=== PATIENT | male | born 1960 ===

== ENCOUNTER 2024-05-02 14:02 | Outpatient (CLI) | payer MEDICARE, MEDICAID, SELFPAY ==
[2024-05-02 14:29] LABS: Basophils Absolute Auto 0.1 K/mm3 (0.0-0.1); Basophils Percent Auto 0.3 % (0.2-1.2); Eosinophils Absolute Auto 0.1 K/mm3 (0-0.3); Eosinophils Percent Auto 0.5 % (0-4.4); Hematocrit 40.3 % (42.0-52.0); Hemoglobin 13.1 g/dL (14.0-18.0); Immature Granulocyte Absolute 0.05 K/mm3 (0.00-0.031); Immature Granulocyte Percent A 0.3 % (0-0.5); Lymphocytes Absolute Auto 11.61 K/mm3 (0.9-3.2); Lymphocytes Percent Auto 64.2 % (18.3-44.2); Mean Corpuscular HGB Conc 32.5 g/dl (32-36); Mean Corpuscular Hemoglobin 27.8 pg (26-34); Mean Corpuscular Volume 85.4 fl (80-100); Monocytes Absolute Auto 0.6 K/mm3 (0.1-0.6); Monocytes Percent Auto 3.2 % (2.6-8.5); Neutrophils Absolute Auto 5.7 K/mm3 (1.3-6.7); Neutrophils Percent Auto 31.5 % (45.5-73.1); Platelet Count Result 175 k/mm3 (150-375); Red Blood Count 4.72 M/mm3 (4.6-6.20); Red Cell Distribution Width 13.6 % (11.5-14.5); White Blood Count 18.1 K/mm3 (4.5-10.0)
--- OUTSIDE RECORDS SUMMARY | 2024-05-02 15:53 | XMS_ITS | Encounter Summary ---
Author Organization [facility] Facility Care Team Providers Care Paper Guillotine Operator Name Role Phone No, Physician Primary Care Provider [phone] Unknown, Notinfile Primary Care Provider Unavail able Lizz Ann MD Primary Care Provi veronica Encounter Details Date Type Department Care Team (Latest Contact Info) Description 10/05/2016 Orders Only [facility] CLINCONV ProviderMarlene MD [address] [place] [address] Social History Tobacco Use Types Packs/Day Years Used Date Smoking Tobacco: Never Assessed Sex and Gender Information Value Date Recorded Sex Assigned at Not on file 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 us Historical Provider Final Res ult documented in this encounter Visit Diagnoses Not on filedocumented in this encounter Care Teams Paper Guillotine Operator Relationship Specialty Start Date End Date No, Physician PCP - General 09/29/21 10/07/22 Unknown, Notinfile PCP - General 10/08/22 02/26/23 Lizz Ann MD PCP - General Family Medicine 02/27/23 documented as of this encounter
--- OUTSIDE RECORDS SUMMARY | 2024-05-02 15:53 | XMS_ITS | Referral Summary ---
Author Organization [facility] Address [address] [place] [address] Care Team Providers Care Fur Ironer Name Role Phone Lizz Ann MD Primary Care Provi veronica Allergies Active Allergy Reactions Criticality Noted Date Comments Penicillins Rash Medium 02/27/2023 Medications tamsulosin (FLOMAX) 0.4 mg extended release capsule 1 capsule (0.4 mg total) daily Active cloZAPine (CLOZARIL) 50 mg tablet Take 1 tablet (50 mg total) by mouth daily Active LORazepam (ATIVAN) 0.5 mg tablet Take 1 tablet (0.5 mg total) by mouth every 6 (six) hours as needed for anxiety Active hydrOXYzine (ATARAX) 25 mg tablet Take 1 tablet (25 mg total) by mouth 3 (three) times a day as needed for itching Active busPIRone (BUSPAR) 10 mg tabletIndicatio ns:Generalized Anxiety Disorder Take 1 tablet (10 mg total) by mouth 3 (three) times a day Active omeprazole 20 mg tablet,delayed release (DR/EC) Take by mouth Active meloxicam (MOBIC) 15 mg tabletIndicatio ns:Osteoarthrit is Take 1 tablet (15 mg total) by mouth daily 30 tablet 02/27/2023 Active Active Problems No known active problems Social History Tobacco Use Types Packs/Day Years Used Date Smoking Tobacco: Never Assessed Personal Safety Answer Date Recorded Have you ever been in or are you currently in a harmful physical or emotional relationship or is someone making you feel afraid or unsafe? 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 OPERATOR Gender Identity Not on file Sexual Orientation Not on file Last Filed Vital Signs Vital Sign Reading Time Taken Comments Blood Pressure 154/99 02/27/2023 8:37 AM CRUSHER LOADER OPERATOR Pulse 109 02/27/2023 8:45 AM CRUSHER LOADER OPERATOR Temperature 37.1 C (98.8 F) 02/27/2023 8:38 AM CRUSHER LOADER OPERATOR Respiratory Rate 18 02/27/2023 8:37 AM CRUSHER LOADER OPERATOR Oxygen Saturation 100% 02/27/2023 8:45 AM CRUSHER LOADER OPERATOR Inhaled Oxygen Concentration - - Weight 68 kg (150 lb) 02/27/2023 8:37 AM CRUSHER LOADER OPERATOR Height 170.2 cm (5' 7 ) 02/27/2023 8:37 AM CRUSHER LOADER OPERATOR Body Mass Index 23.49 02/27/2023 8:37 AM CRUSHER LOADER OPERATOR Plan of Treatment Not on file Insurance MEDICARE [facility] MEDICARE Care Teams Fur Ironer Relationship Specialty Start Date End Date Lizz Ann MD PCP - General Family Medicine 02/27/23
--- OUTSIDE RECORDS SUMMARY | 2024-05-02 15:53 | XMS_ITS | Encounter Summary ---
Author Organization [facility] Facility Care Team Providers Care Dry Pan Charger Name Role Phone No, Physician Primary Care Provider [phone] Unknown, Notinfile Primary Care Provider Unavail able Lizz Ann MD Primary Care Provi veronica Encounter Details Date Type Department Care Team (Latest Contact Info) Description 12/28/2016 Orders Only [facility] CLINCONV ProviderMarlene MD [address] [place] [address] Social History Tobacco Use Types Packs/Day Years Used Date Smoking Tobacco: Never Assessed Sex and Gender Information Value Date Recorded Sex Assigned at Not on file Legal Sex Male 11:22 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 us Historical Provider Final Res ult documented in this encounter Visit Diagnoses Not on filedocumented in this encounter Care Teams Dry Pan Charger Relationship Specialty Start Date End Date No, Physician PCP - General 09/29/21 10/07/22 Unknown, Notinfile PCP - General 10/08/22 02/26/23 Lizz Ann MD PCP - General Family Medicine 02/27/23 documented as of this encounter
--- OUTSIDE RECORDS SUMMARY | 2024-05-02 15:53 | XMS_ITS | Encounter Summary ---
Author Organization [facility] Facility Care Team Providers Care Dog Day Care Attendant Name Role Phone No, Physician Primary Care Provider [phone] Unknown, Notinfile Primary Care Provider Unavail able Lizz Ann MD Primary Care Provi veronica Encounter Details Date Type Department Care Team (Latest Contact Info) Description 11/30/2016 Orders Only [facility] CLINCONV ProviderMarlene MD [address] [place] [address] Social History Tobacco Use Types Packs/Day Years Used Date Smoking Tobacco: Never Assessed Sex and Gender Information Value Date Recorded Sex Assigned at Not on file 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 us Historical Provider Final Res ult documented in this encounter Visit Diagnoses Not on filedocumented in this encounter Care Teams Dog Day Care Attendant Relationship Specialty Start Date End Date No, Physician PCP - General 09/29/21 10/07/22 Unknown, Notinfile PCP - General 10/08/22 02/26/23 Lizz Ann MD PCP - General Family Medicine 02/27/23 documented as of this encounter
--- OUTSIDE RECORDS SUMMARY | 2024-05-02 15:53 | XMS_ITS | Clinical Summary ---
Author Organization [facility] Address [address] [place] [address] Care Team Providers Care Flower Grader Name Role Phone Lizz Ann MD Primary [...] on file Legal Sex Male 11:22 AM TREE SHEAR OPERATOR Gender Identity Not on file Sexual Orientation Not on file Obstetrics History Last Filed Vital Signs Vital Sign Reading Time Taken Comments Blood Pressure 154/99 02/27/2023 8:37 AM TREE SHEAR OPERATOR Pulse 109 02/27/2023 8:45 AM TREE SHEAR OPERATOR Temperature 37.1 C (98.8 F) 02/27/2023 8:38 AM TREE SHEAR OPERATOR Respiratory Rate 18 02/27/2023 8:37 AM TREE SHEAR OPERATOR Oxygen Saturation 100% 02/27/2023 8:45 AM TREE SHEAR OPERATOR Inhaled Oxygen Concentration - - Weight 68 kg (150 lb) 02/27/2023 8:37 AM TREE SHEAR OPERATOR Height 170.2 cm (5' 7 ) 02/27/2023 8:37 AM TREE SHEAR OPERATOR Body Mass Index 23.49 02/27/2023 8:37 AM TREE SHEAR OPERATOR Plan of Treatment Health Maintenance Due Date Last Done Comments Colon Cancer Screening-Colonoscopy 1961 Depression Screening 1960 Hepatitis C Screening 1960 Prostate Cancer Screening-PSA 1961 Hepatitis B Screening 07/25/1979 Regular Well Visit/Exam 18-64 07/25/1979 Zoster Vaccine (1 of 2) 07/25/2011 Covid-19 Vaccine (2023-2 5 season) 2023 01/15/2021, 03/15/2020, 02/23/2020 Influenza Vaccine (#1) 2023 , 11/19/2021 DTaP/Tdap/Td Vaccine (2 - Td or Tdap) 11/16/2032 11/16/2022 Pneumococcal vaccine <65 Aged Out No longer eligible based on patient's age to complete this topic Insurance MEDICARE [employer] MEDICARE [facility] Address: [address] [address] [place] [address] Care Teams Flower Grader Relationship Specialty Start Date End Date Lizz Ann MD PCP - General Family Medicine 02/27/23
--- OUTSIDE RECORDS SUMMARY | 2024-05-02 15:54 | XMS_ITS | Encounter Summary ---
Author Organization [facility] Facility Care Team Providers Care Fiscal Accounting Clerk Name Role Phone No, Physician Primary Care Provider [phone] Unknown, Notinfile Primary Care Provider Unavail able Lizz Ann MD Primary Care Provi veronica Encounter Details Date Type Department Care Team (Latest Contact Info) Description 05/11/2017 Orders Only [facility] CLINCONV ProviderMarlene MD [address] [place] [address] Social History Tobacco Use Types Packs/Day Years Used Date Smoking Tobacco: Never Assessed Sex and Gender Information Value Date Recorded Sex Assigned at Not on file 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 us Historical Provider Final Res ult documented in this encounter Visit Diagnoses Not on filedocumented in this encounter Care Teams Fiscal Accounting Clerk Relationship Specialty Start Date End Date No, Physician PCP - General 09/29/21 10/07/22 Unknown, Notinfile PCP - General 10/08/22 02/26/23 Lizz Ann MD PCP - General Family Medicine 02/27/23 documented as of this encounter
--- OUTSIDE RECORDS SUMMARY | 2024-05-02 15:54 | XMS_ITS | Encounter Summary ---
Author Organization [facility] Address [address] [place] [address] Care Team Providers Care Jeeper Operator Name Role Phone Unavailable Primary Care Provider Unavailabl e Reason for Visit * Reason Comments Establish Care Encounter Details Date Type Department Care Team (Late st Contact Info) Description 05/02/2024 1:30 PM CDT Office Visit [facility] Oncology and Hematology - [place] [address] [facility] [address] [place] [address] Jose Blankenship MD [address] [facility] [address] [place] [address] Lymphocytosis (Primary Dx) Social History Tobacco Use Types Packs/Day Years Used Date Smoking Tobacco: Never Smokeless Tobacco: Never Alcohol Use Standard Drinks/Week Comments Never 0 (1 standard drink = 0.6 oz pur e alcohol) Sex and Gender Information Value Date Recorded Sex Assigned at Not on file Legal Sex Male 5:10 PM BEADWORKER Gender Identity Not on file Sexual Orientation Not on file documented as of this encounter Last Filed Vital Signs Vital Sign Reading Time Taken Comments Blood Pressure 130/87 05/02/2024 1:31 PM CDT Pulse 104 05/02/2024 1:28 PM CDT Temperature 35.9 C (96.6 F) 05/02/2024 1:28 PM CDT Respiratory Rate 15 05/02/2024 1:28 PM CDT Oxygen Saturation 96% 05/02/2024 1:28 PM CDT Inhaled Oxygen Concentration - - Weight 59 kg (130 lb) 05/02/2024 1:28 PM CDT Height 172.7 cm (5' 8 ) 05/02/2024 1:28 PM CDT Body Mass Index 19.77 05/02/2024 1:28 PM CDT documented in this encounter Progress Notes * Jose Blankenship MD - 05/02/2024 2:09 PM CDT Hematology-oncology consult Note Requesting Physician Primary Care Physician No primary care provider on file. Problem list There is no problem list on file for this patient. Previous TREATMENT ? Measurable Disease ? Reason for Visit Neptali Byrd is a 63 y.o. male who was referred for consultation for lymphocytosis. History of present illness This is a 63-year-old male with history of schizophrenia, GERD, BPH referred to me for leukocytosis and lymphocytosis. He is a resident of [facility]. He denies any night sweats fever chills. He has lost 5 to 10 pound weight unintentionally. Denies any new lumps bumps and lymphadenopathy. He has no previous history of malignancy. Labs done on January 2024 showed WBCcount of 18.8 with lymphocyte of 64%. He denies any other new complaints. Past Medical History No past medical history on file. Schizophrenia BPH GERD Hypothyroidism Surgical History Past Surgical History: Procedure Laterality Date HX HIP FRACTURE TX Medications Current Outpatient Medications Medication Sig Dispense Refill LORazepam (ATIVAN) 0.5 mg tablet Take 0.5 mg by mouth daily. meloxicam (MOBIC) 15 mg tablet Take 15 mg by mouth daily. tamsulosin (FLOMAX) 0.4 mg capsule Take 0.4 mg by mouth daily. melatonin 5 mg Tablet Take 5 mg by mouth nightly as needed for Insomnia. MULTIVITAMIN ORAL Take by mouth daily. omeprazole (PriLOSEC) 20 mg Tablet, Delayed Release (E.C.) 20 mg by See Admin Instructions route daily before breakfast. No current facility-administered medications for this visit. Allergies Allergies Allergen Reactions Penicillins Rash and Unknown Immunizations: Immunization History Administered Date(s) Administered ([employer](12 YR UP) COVID-19 VACCINE - EMERGENCY USE AUTHORIZATION, MRNA, [id number](PF) 30 MCG/0.3 MLIM SUSP 02/23/2020, 03/15/2020, 01/15/2021 Family History Family History Problem Relation Name Age of Onset Heart Disease Father Diabetes Mother Breast Cancer Sister Bone Cancer Sister Atrial fibrillation Sister No Known Problems Sister Social History Social History Tobacco Use Smoking status: Never Smokeless tobacco: Never Substance Use Topics Alcohol use: Never Review of Systems Constitutional: Patient did not mention fever; no night sweats; no anorexia; no weight loss; no fatique NEENT: Patient did not mention headache; no change in vision; no change in hearing; no sore throat;no dysphagia Respiratory: Patient did not mention shortness of breath; no pleuritic chest pain; no cough; no hemoptysis Cardiac: Patient did not mention cardiac-like chest pain; no palpitations; no orthopnea; no PND; noDOE GI: Patient did not mention abdominal pain; no nausea; no vomiting; no diarrhea; no hematochezia; no melena : Patient did not mention dysuria; no frequency; no hesitancy; no hematuria LOCATION ANALYST: Musculosketetal: Patient did not mention bone pain; no arthralgia; no joint swelling; no myalgia; Skin: Patient did not mention pruritis; no rash; no petechiae; no ecchymoses Endocrine: Patient did not mention polydipsia; no polyuria; no unusual weight gain Neuro: Patient did not mention headache; no change in vision; no sensory changes; no muscle weakness; no confusion; no seizures Psych: Patient did not mention anxiety; no depression; Physical Exam Vitals: As per nursing note Constitutional: Well developed, well nourished, no acute distress, non-toxic appearance Teeth and gum. No signs of infection or swelling. Eyes: PERRL, conjunctiva normal HEENT: Atraumatic, external ears normal, nose normal, oropharynx moist, no pharyngeal exudates. no sinus tenderness Neck- normal range of motion, no tenderness, supple Respiratory: No respiratory distress, normal breath sounds, no rales, no wheezing Cardiovascular: Normal rate, normal rhythm, no murmurs, no gallops, no rubs GI: Soft, nondistended, normal bowel sounds, nontender, no splenomegaly, no hepatomegaly, no mass, no rebound, no guarding : No costovertebral angle tenderness Musculoskeletal: No edema, no tenderness, no deformities. Back- no tenderness Integument: Well hydrated, no rash, Digits and nails inspection normal Lymphatic: No lymphadenopathy noted Neurologic: Alert & oriented x 3, CN 2-12 normal, normal motor function, normal sensory function, no focal deficits noted Psychiatric: Speech and behavior appropriate ? labs No results found for this or any previous visit (from the past 24 hours). Labs from January 2024 showed WBC 18.8 hemoglobin 12.5 platelet 191,000 neutrophils 31% [id number] Pathology ? Imaging & Other Studies Performance Status? Assessment / Plan: ? Leukocytosis with lymphocytosis. Patient is a 63-year-old male with history of schizophrenia, hypothyroidism, GERD and BPH referred to me for leukocytosis and lymphocytosis. Patient is a long term resident. He denies any night sweats fever and chills. Denies any new lumps bumps and lymp hadenopathy. He has lost 5 to 10 pound weight unintentionally. Labs reviewed and discussed with thepatient that showed elevated WBC count with lymphocytosis. On my examination there is no evidence of lymphadenopathy and hepatosplenomegaly. These findings are quite concerning for chronic lymphocytic leukemia. I will order the testing including CBC with differential, CMP, LDH and flow cytometric analysis for leukemia panel. He will be back to see me in 2 to 3 weeks. I have answered all the questions to patient satisfaction. GERD. He is on Prilosec. BPH. He is on tamsulosin. Thank you very much for allowing me to participate in Neptali Byrd's evaluation and management. Please feel free to contact if I can be of any further assistance in your patient???s care requiring hematology or oncology evaluation. Sincerely, ? ? Jose Blankenship M.D. cell TOBACCO COUNSELING He is not a tobacco/nicotine user. Jose Blankenship MD ,05/02/2024 2:10 PM ? Total time spent 60 minutes, two third of the total time spent counseling patient [id number]. CC:? documented in this encounter Plan of Treatment Scheduled Orders Name Type Priority Associated Diagnoses Orde r Schedule CBC WITH DIFFERENTIAL Lab Stat Lymphocytosis Expected: 05/02/2024, Expires: 05/02/2025 COMPREHENSIVE METABOLIC PANEL Lab Stat Lymphocytosis Expected: 05/02/2024, Expires: 05/02/2025 C-REACTIVE PROTEIN Lab Routine Lymphocytosis Expected: 05/02/2024, Expires: 05/02/2025 LACTATE DEHYDROGENASE Lab Routine Lymphocytosis Expected: 05/02/2024, Expires: 05/02/2025 FLOW CYTOMETRY PANEL Lab Routine Lymphocytosis Expected: 05/02/2024, Expires: 05/02/2025 documented as of this encounter Visit Diagnoses Diagnosis Lymphocytosis- Primary Lymphocytosis (symptomatic) documented in this encounter
--- OUTSIDE RECORDS SUMMARY | 2024-05-02 15:54 | XMS_ITS | Encounter Summary ---
Author Organization [facility] Facility Care Team Providers Care Security Systems Specialist Name Role Phone No, Physician Primary Care Provider [phone] Unknown, Notinfile Primary Care Provider Unavail able Lizz Ann MD Primary Care Provi veronica Encounter Details Date Type Department Care Team (Latest Contact Info) Description 05/04/2016 Orders Only [facility] CLINCONV ProviderMarlene MD [address] [place] [address] Social History Tobacco Use Types Packs/Day Years Used Date Smoking Tobacco: Never Assessed Sex and Gender Information Value Date Recorded Sex Assigned at Not on file Legal Sex Male 11:22 AM PUBLIC RELATIONS PROFESSIONAL Gender Identity Not on file Sexual Orientation Not on file documented as of this encounter Plan of Treatment Not on file documented as of this encounter Procedures Procedure Name Priority Date/Time Associated Diagnosis Comments SCAN - LABS 05/05/2016 12:00 AM CDT documented in this encounter Results * SCAN - LABS (05/05/2016 12:00 AM CDT) Narrative 05/05/2016 12:00 AM CDT Ordered by an unspecified provider. us Historical Provider Final Res ult documented in this encounter Visit Diagnoses Not on filedocumented in this encounter Care Teams Security Systems Specialist Relationship Specialty Start Date End Date No, Physician PCP - General 09/29/21 10/07/22 Unknown, Notinfile PCP - General 10/08/22 02/26/23 Lizz Ann MD PCP - General Family Medicine 02/27/23 documented as of this encounter
--- OUTSIDE RECORDS SUMMARY | 2024-05-02 15:54 | XMS_ITS | Encounter Summary ---
Author Organization [facility] Facility Care Team Providers Care Resident Services Supervisor Name Role Phone No, Physician Primary Care Provider [phone] Unknown, Notinfile Primary Care Provider Unavail able Lizz Ann MD Primary Care Provi veronica Encounter Details Date Type Department Care Team (Latest Contact Info) Description 06/07/2017 Orders Only [facility] CLINCONV ProviderMarlene MD [address] [place] [address] Social History Tobacco Use Types Packs/Day Years Used Date Smoking Tobacco: Never Assessed Sex and Gender Information Value Date Recorded Sex Assigned at Not on file 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 us Historical Provider Final Res ult documented in this encounter Visit Diagnoses Not on filedocumented in this encounter Care Teams Resident Services Supervisor Relationship Specialty Start Date End Date No, Physician PCP - General 09/29/21 10/07/22 Unknown, Notinfile PCP - General 10/08/22 02/26/23 Lizz Ann MD PCP - General Family Medicine 02/27/23 documented as of this encounter
--- OUTSIDE RECORDS SUMMARY | 2024-05-02 15:54 | XMS_ITS | Encounter Summary ---
Author Organization [facility] Facility Care Team Providers Care Banquet Kitchen Supervisor Name Role Phone No, Physician Primary Care Provider [phone] Unknown, Notinfile Primary Care Provider Unavail able Lizz Ann MD Primary Care Provi veronica Encounter Details Date Type Department Care Team (Latest Contact Info) Description 06/16/2017 Orders Only [facility] CLINCONV ProviderMarlene MD [address] [place] [address] Social History Tobacco Use Types Packs/Day Years Used Date Smoking Tobacco: Never Assessed Sex and Gender Information Value Date Recorded Sex Assigned at Not on file 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 us Historical Provider Final Res ult documented in this encounter Visit Diagnoses Not on filedocumented in this encounter Care Teams Banquet Kitchen Supervisor Relationship Specialty Start Date End Date No, Physician PCP - General 09/29/21 10/07/22 Unknown, Notinfile PCP - General 10/08/22 02/26/23 Lizz Ann MD PCP - General Family Medicine 02/27/23 documented as of this encounter
--- OUTSIDE RECORDS SUMMARY | 2024-05-02 15:54 | XMS_ITS | Encounter Summary ---
Author Organization [facility] Facility Care Team Providers Care Laborer Concrete Paving Name Role Phone No, Physician Primary Care Provider [phone] Unknown, Notinfile Primary Care Provider Unavail able Lizz Ann MD Primary Care Provi veronica Encounter Details Date Type Department Care Team (Latest Contact Info) Description 04/16/2016 Orders Only [facility] CLINCONV ProviderMarlene MD [address] [place] [address] Social History Tobacco Use Types Packs/Day Years Used Date Smoking Tobacco: Never Assessed Sex and Gender Information Value Date Recorded Sex Assigned at Not on file 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 us Historical Provider Final Res ult documented in this encounter Visit Diagnoses Not on filedocumented in this encounter Care Teams Laborer Concrete Paving Relationship Specialty Start Date End Date No, Physician PCP - General 09/29/21 10/07/22 Unknown, Notinfile PCP - General 10/08/22 02/26/23 Lizz Ann MD PCP - General Family Medicine 02/27/23 documented as of this encounter
--- OUTSIDE RECORDS SUMMARY | 2024-05-02 15:54 | XMS_ITS | Encounter Summary ---
Author Organization [facility] Facility Care Team Providers Care Payroll Specialist Name Role Phone No, Physician Primary Care Provider [phone] Unknown, Notinfile Primary Care Provider Unavail able Lizz Ann MD Primary Care Provi evronica Encounter Details Date Type Department Care Team (Latest Contact Info) Description 08/31/2016 Orders Only [facility] CLINCONV ProviderMarlene MD [address] [place] [address] Social History Tobacco Use Types Packs/Day Years Used Date Smoking Tobacco: Never Assessed Sex and Gender Information Value Date Recorded Sex Assigned at Not on file 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 us Historical Provider Final Res ult documented in this encounter Visit Diagnoses Not on filedocumented in this encounter Care Teams Payroll Specialist Relationship Specialty Start Date End Date No, Physician PCP - General 09/29/21 10/07/22 Unknown, Notinfile PCP - General 10/08/22 02/26/23 Lizz Ann MD PCP - General Family Medicine 02/27/23 documented as of this encounter
--- OUTSIDE RECORDS SUMMARY | 2024-05-02 15:54 | XMS_ITS | Encounter Summary ---
Author Organization [facility] Facility Care Team Providers Care Lithostripper Name Role Phone No, Physician Primary Care Provider [phone] Unknown, Notinfile Primary Care Provider Unavail able Lizz Ann MD Primary Care Provi veronica Encounter Details Date Type Department Care Team (Latest Contact Info) Description 11/02/2016 Orders Only [facility] CLINCONV ProviderMarlene MD [address] [place] [address] Social History Tobacco Use Types Packs/Day Years Used Date Smoking Tobacco: Never Assessed Sex and Gender Information Value Date Recorded Sex Assigned at Not on file 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 us Historical Provider Final Res ult documented in this encounter Visit Diagnoses Not on filedocumented in this encounter Care Teams Lithostripper Relationship Specialty Start Date End Date No, Physician PCP - General 09/29/21 10/07/22 Unknown, Notinfile PCP - General 10/08/22 02/26/23 Lizz Ann MD PCP - General Family Medicine 02/27/23 documented as of this encounter
--- OUTSIDE RECORDS SUMMARY | 2024-05-02 15:54 | XMS_ITS | Encounter Summary ---
Author Organization [facility] Facility Care Team Providers Care Specimen Accessioner Name Role Phone No, Physician Primary Care Provider [phone] Unknown, Notinfile Primary Care Provider Unavail able Lizz Ann MD Primary Care Provi veronica Encounter Details Date Type Department Care Team (Latest Contact Info) Description 10/03/2015 Orders Only [facility] CLINCONV ProviderMarlene MD [address] [place] [address] Social History Tobacco Use Types Packs/Day Years Used Date Smoking Tobacco: Never Assessed Sex and Gender Information Value Date Recorded Sex Assigned at Not on file 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 us Historical Provider Final Res ult documented in this encounter Visit Diagnoses Not on filedocumented in this encounter Care Teams Specimen Accessioner Relationship Specialty Start Date End Date No, Physician PCP - General 09/29/21 10/07/22 Unknown, Notinfile PCP - General 10/08/22 02/26/23 Lizz Ann MD PCP - General Family Medicine 02/27/23 documented as of this encounter
--- OUTSIDE RECORDS SUMMARY | 2024-05-02 15:54 | XMS_ITS | Encounter Summary ---
Author Organization [facility] Facility Care Team Providers Care Fountain Waitress/Waiter Name Role Phone No, Physician Primary Care Provider [phone] Unknown, Notinfile Primary Care Provider Unavail able Lizz Ann MD Primary Care Provi veronica Encounter Details Date Type Department Care Team (Latest Contact Info) Description 05/06/2017 Orders Only [facility] CLINCONV ProviderMarlene MD [address] [place] [address] Social History Tobacco Use Types Packs/Day Years Used Date Smoking Tobacco: Never Assessed Sex and Gender Information Value Date Recorded Sex Assigned at Not on file 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 us Historical Provider Final Res ult documented in this encounter Visit Diagnoses Not on filedocumented in this encounter Care Teams Fountain Waitress/Waiter Relationship Specialty Start Date End Date No, Physician PCP - General 09/29/21 10/07/22 Unknown, Notinfile PCP - General 10/08/22 02/26/23 Lizz Ann MD PCP - General Family Medicine 02/27/23 documented as of this encounter
--- OUTSIDE RECORDS SUMMARY | 2024-05-02 15:54 | XMS_ITS | Encounter Summary ---
Author Organization [facility] Facility Care Team Providers Care Meat Lugger Name Role Phone No, Physician Primary Care Provider [phone] Unknown, Notinfile Primary Care Provider Unavail able Lizz Ann MD Primary Care Provi veronica Encounter Details Date Type Department Care Team (Latest Contact Info) Description 03/24/2017 Orders Only [facility] CLINCONV ProviderMarlene MD [address] [place] [address] Social History Tobacco Use Types Packs/Day Years Used Date Smoking Tobacco: Never Assessed Sex and Gender Information Value Date Recorded Sex Assigned at Not on file Legal Sex Male 11:22 AM TEACHING FELLOW Gender Identity Not on file Sexual Orientation Not on file documented as of this encounter Plan of Treatment Not on file documented as of this encounter Procedures Procedure Name Priority Date/Time Associated Diagnosis Comments SCAN - LABS 03/24/2017 12:00 AM TEACHING FELLOW documented in this encounter Results * SCAN - LABS (03/24/2017 12:00 AM TEACHING FELLOW) Narrative 03/24/2017 12:00 AM TEACHING FELLOW Ordered by an unspecified provider. us Historical Provider Final Res ult documented in this encounter Visit Diagnoses Not on filedocumented in this encounter Care Teams Meat Lugger Relationship Specialty Start Date End Date No, Physician PCP - General 09/29/21 10/07/22 Unknown, Notinfile PCP - General 10/08/22 02/26/23 Lizz Ann MD PCP - General Family Medicine 02/27/23 documented as of this encounter
--- OUTSIDE RECORDS SUMMARY | 2024-05-02 15:54 | XMS_ITS | Encounter Summary ---
Author Organization [facility] Facility Care Team Providers Care Manager Insurance Name Role Phone No, Physician Primary Care Provider [phone] Unknown, Notinfile Primary Care Provider Unavail able Lizz Ann MD Primary Care Provi veronica Encounter Details Date Type Department Care Team (Latest Contact Info) Description 11/16/2016 Orders Only [facility] CLINCONV ProviderMarlene MD [address] [place] [address] Social History Tobacco Use Types Packs/Day Years Used Date Smoking Tobacco: Never Assessed Sex and Gender Information Value Date Recorded Sex Assigned at Not on file 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 us Historical Provider Final Res ult documented in this encounter Visit Diagnoses Not on filedocumented in this encounter Care Teams Manager Insurance Relationship Specialty Start Date End Date No, Physician PCP - General 09/29/21 10/07/22 Unknown, Notinfile PCP - General 10/08/22 02/26/23 Lizz Ann MD PCP - General Family Medicine 02/27/23 documented as of this encounter
--- OUTSIDE RECORDS SUMMARY | 2024-05-02 15:54 | XMS_ITS | Encounter Summary ---
Author Organization [facility] Facility Care Team Providers Care Wirer Helper Name Role Phone No, Physician Primary Care Provider [phone] Unknown, Notinfile Primary Care Provider Unavail able Lizz Ann MD Primary Care Provi veronica Encounter Details Date Type Department Care Team (Latest Contact Info) Description 09/28/2016 Orders Only [facility] CLINCONV ProviderMarlene MD [address] [place] [address] Social History Tobacco Use Types Packs/Day Years Used Date Smoking Tobacco: Never Assessed Sex and Gender Information Value Date Recorded Sex Assigned at Not on file 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 us Historical Provider Final Res ult documented in this encounter Visit Diagnoses Not on filedocumented in this encounter Care Teams Wirer Helper Relationship Specialty Start Date End Date No, Physician PCP - General 09/29/21 10/07/22 Unknown, Notinfile PCP - General 10/08/22 02/26/23 Lizz Ann MD PCP - General Family Medicine 02/27/23 documented as of this encounter
--- OUTSIDE RECORDS SUMMARY | 2024-05-02 15:54 | XMS_ITS | Encounter Summary ---
Author Organization [facility] Facility Care Team Providers Care Community Health Nursing Director Name Role Phone No, Physician Primary Care Provider [phone] Unknown, Notinfile Primary Care Provider Unavail able Lizz Ann MD Primary Care Provi veronica Encounter Details Date Type Department Care Team (Latest Contact Info) Description 11/01/2015 Orders Only [facility] CLINCONV ProviderMarlene MD [address] [place] [address] Social History Tobacco Use Types Packs/Day Years Used Date Smoking Tobacco: Never Assessed Sex and Gender Information Value Date Recorded Sex Assigned at Not on file Legal Sex Male 11:22 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 us Historical Provider Final Res ult documented in this encounter Visit Diagnoses Not on filedocumented in this encounter Care Teams Community Health Nursing Director Relationship Specialty Start Date End Date No, Physician PCP - General 09/29/21 10/07/22 Unknown, Notinfile PCP - General 10/08/22 02/26/23 Lizz Ann MD PCP - General Family Medicine 02/27/23 documented as of this encounter
--- OUTSIDE RECORDS SUMMARY | 2024-05-02 15:54 | XMS_ITS | Encounter Summary ---
Author Organization 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 us Historical Provider Final Res ult documented in this encounter Visit Diagnoses Not on filedocumented in this encounter Care Teams Chain Link Fence Installer Relationship Specialty Start Date End Date No, Physician PCP - General 09/29/21 10/07/22 Unknown, Notinfile PCP - General 10/08/22 02/26/23 Lizz Ann MD PCP - General Family Medicine 02/27/23 documented as of this encounter
--- OUTSIDE RECORDS SUMMARY | 2024-05-02 15:54 | XMS_ITS | Encounter Summary ---
Author Organization [facility] Facility Care Team Providers Care Standard Machine Stitcher Name Role Phone No, Physician Primary Care Provider [phone] Unknown, Notinfile Primary Care Provider Unavail able Lizz Ann MD Primary Care Provi veronica Encounter Details Date Type Department Care Team (Latest Contact Info) Description 07/15/2016 Orders Only [facility] CLINCONV ProviderMarlene MD [address] [place] [address] Social History Tobacco Use Types Packs/Day Years Used Date Smoking Tobacco: Never Assessed Sex and Gender Information Value Date Recorded Sex Assigned at Not on file 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 us Historical Provider Final Res ult documented in this encounter Visit Diagnoses Not on filedocumented in this encounter Care Teams Standard Machine Stitcher Relationship Specialty Start Date End Date No, Physician PCP - General 09/29/21 10/07/22 Unknown, Notinfile PCP - General 10/08/22 02/26/23 Lizz Ann MD PCP - General Family Medicine 02/27/23 documented as of this encounter
--- OUTSIDE RECORDS SUMMARY | 2024-05-02 15:54 | XMS_ITS | Encounter Summary ---
Author Organization [facility] Facility Care Team Providers Care Inspector Eyeglass Name Role Phone No, Physician Primary Care Provider [phone] Unknown, Notinfile Primary Care Provider Unavail able Lizz Ann MD Primary Care Provi veronica Encounter Details Date Type Department Care Team (Latest Contact Info) Description 01/12/2017 Orders Only [facility] CLINCONV ProviderMarlene MD [address] [place] [address] Social History Tobacco Use Types Packs/Day Years Used Date Smoking Tobacco: Never Assessed Sex and Gender Information Value Date Recorded Sex Assigned at Not on file 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 us Historical Provider Final Res ult documented in this encounter Visit Diagnoses Not on filedocumented in this encounter Care Teams Inspector Eyeglass Relationship Specialty Start Date End Date No, Physician PCP - General 09/29/21 10/07/22 Unknown, Notinfile PCP - General 10/08/22 02/26/23 Lizz Ann MD PCP - General Family Medicine 02/27/23 documented as of this encounter
--- OUTSIDE RECORDS SUMMARY | 2024-05-02 15:54 | XMS_ITS | Encounter Summary ---
Author Organization [facility] Facility Care Team Providers Care Assistant Food Service Director Name Role Phone No, Physician Primary Care Provider [phone] Unknown, Notinfile Primary Care Provider Unavail able Lizz Ann MD Primary Care Provi veronica Encounter Details Date Type Department Care Team (Latest Contact Info) Description 07/02/2016 Orders Only [facility] CLINCONV ProviderMarlene MD [address] [place] [address] Social History Tobacco Use Types Packs/Day Years Used Date Smoking Tobacco: Never Assessed Sex and Gender Information Value Date Recorded Sex Assigned at Not on file 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 us Historical Provider Final Res ult documented in this encounter Visit Diagnoses Not on filedocumented in this encounter Care Teams Assistant Food Service Director Relationship Specialty Start Date End Date No, Physician PCP - General 09/29/21 10/07/22 Unknown, Notinfile PCP - General 10/08/22 02/26/23 Lizz Ann MD PCP - General Family Medicine 02/27/23 documented as of this encounter
--- OUTSIDE RECORDS SUMMARY | 2024-05-02 15:54 | XMS_ITS | Encounter Summary ---
Author Organization [facility] Facility Care Team Providers Care High Density Finishing Operator Name Role Phone No, Physician Primary Care Provider [phone] Unknown, Notinfile Primary Care Provider Unavail able Lizz Ann MD Primary Care Provi veronica Encounter Details Date Type Department Care Team (Latest Contact Info) Description 08/04/2016 Orders Only [facility] CLINCONV ProviderMarlene MD [address] [place] [address] Social History Tobacco Use Types Packs/Day Years Used Date Smoking Tobacco: Never Assessed Sex and Gender Information Value Date Recorded Sex Assigned at Not on file 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 us Historical Provider Final Res ult documented in this encounter Visit Diagnoses Not on filedocumented in this encounter Care Teams High Density Finishing Operator Relationship Specialty Start Date End Date No, Physician PCP - General 09/29/21 10/07/22 Unknown, Notinfile PCP - General 10/08/22 02/26/23 Lizz Ann MD PCP - General Family Medicine 02/27/23 documented as of this encounter
--- OUTSIDE RECORDS SUMMARY | 2024-05-02 15:54 | XMS_ITS | Encounter Summary ---
Author Organization [facility] Facility Care Team Providers Care Supervisor Twisting Department Name Role Phone No, Physician Primary Care Provider [phone] Unknown, Notinfile Primary Care Provider Unavail able Lizz Ann MD Primary Care Provi veronica Encounter Details Date Type Department Care Team (Latest Contact Info) Description 11/23/2016 Orders Only [facility] CLINCONV ProviderMarlene MD [address] [place] [address] Social History Tobacco Use Types Packs/Day Years Used Date Smoking Tobacco: Never Assessed Sex and Gender Information Value Date Recorded Sex Assigned at Not on file 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 us Historical Provider Final Res ult documented in this encounter Visit Diagnoses Not on filedocumented in this encounter Care Teams Supervisor Twisting Department Relationship Specialty Start Date End Date No, Physician PCP - General 09/29/21 10/07/22 Unknown, Notinfile PCP - General 10/08/22 02/26/23 Lizz Ann MD PCP - General Family Medicine 02/27/23 documented as of this encounter
--- OUTSIDE RECORDS SUMMARY | 2024-05-02 15:54 | XMS_ITS | Encounter Summary ---
Author Organization [facility] Facility Care Team Providers Care Program Proposals Coordinator Name Role Phone No, Physician Primary Care Provider [phone] Unknown, Notinfile Primary Care Provider Unavail able Lizz Ann MD Primary Care Provi veronica Encounter Details Date Type Department Care Team (Latest Contact Info) Description 03/29/2017 Orders Only [facility] CLINCONV ProviderMarlene MD [address] [place] [address] Social History Tobacco Use Types Packs/Day Years Used Date Smoking Tobacco: Never Assessed Sex and Gender Information Value Date Recorded Sex Assigned at Not on file Legal Sex 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 us Historical Provider Final Res ult documented in this encounter Visit Diagnoses Not on filedocumented in this encounter Care Teams Program Proposals Coordinator Relationship Specialty Start Date End Date No, Physician PCP - General 09/29/21 10/07/22 Unknown, Notinfile PCP - General 10/08/22 02/26/23 Lizz Ann MD PCP - General Family Medicine 02/27/23 documented as of this encounter
--- OUTSIDE RECORDS SUMMARY | 2024-05-02 15:54 | XMS_ITS | Encounter Summary ---
Author Organization [facility] Facility Care Team Providers Care Trigonometry Teacher Name Role Phone No, Physician Primary Care Provider [phone] Unknown, Notinfile Primary Care Provider Unavail able Lizz Ann MD Primary Care Provi veronica Encounter Details Date Type Department Care Team (Latest Contact Info) Description 03/08/2017 Orders Only [facility] CLINCONV ProviderMarlene MD [address] [place] [address] Social History Tobacco Use Types Packs/Day Years Used Date Smoking Tobacco: Never Assessed Sex and Gender Information Value Date Recorded Sex Assigned at Not on file Legal Sex Male 11:22 AM PORTABLE TRACK LINE MARKER Gender Identity Not on file Sexual Orientation Not on file documented as of this encounter Plan of Treatment Not on file documented as of this encounter Procedures Procedure Name Priority Date/Time Associated Diagnosis Comments SCAN - LABS 03/08/2017 12:00 AM PORTABLE TRACK LINE MARKER documented in this encounter Results * SCAN - LABS (03/08/2017 12:00 AM PORTABLE TRACK LINE MARKER) Narrative 03/08/2017 12:00 AM PORTABLE TRACK LINE MARKER Ordered by an unspecified provider. us Historical Provider Final Res ult documented in this encounter Visit Diagnoses Not on filedocumented in this encounter Care Teams Trigonometry Teacher Relationship Specialty Start Date End Date No, Physician PCP - General 09/29/21 10/07/22 Unknown, Notinfile PCP - General 10/08/22 02/26/23 Lizz Ann MD PCP - General Family Medicine 02/27/23 documented as of this encounter
--- OUTSIDE RECORDS SUMMARY | 2024-05-02 15:54 | XMS_ITS | Encounter Summary ---
Author Organization [facility] Facility Care Team Providers Care Principal Administrative Clerk Name Role Phone No, Physician Primary Care Provider [phone] Unknown, Notinfile Primary Care Provider Unavail able Lizz Ann MD Primary Care Provi veronica Encounter Details Date Type Department Care Team (Latest Contact Info) Description 05/17/2017 Orders Only [facility] CLINCONV ProviderMarlene MD [address] [place] [address] Social History Tobacco Use Types Packs/Day Years Used Date Smoking Tobacco: Never Assessed Sex and Gender Information Value Date Recorded Sex Assigned at Not on file Legal Sex Male 11:22 AM PILATES COORDINATOR Gender Identity Not on file Sexual Orientation Not on file documented as of this encounter Plan of Treatment Not on file documented as of this encounter Procedures Procedure Name Priority Date/Time Associated Diagnosis Comments SCAN - LABS 05/17/2017 12:00 AM CDT documented in this encounter Results * SCAN - LABS (05/17/2017 12:00 AM CDT) Narrative 05/17/2017 12:00 AM CDT Ordered by an unspecified provider. us Historical Provider Final Res ult documented in this encounter Visit Diagnoses Not on filedocumented in this encounter Care Teams Principal Administrative Clerk Relationship Specialty Start Date End Date No, Physician PCP - General 09/29/21 10/07/22 Unknown, Notinfile PCP - General 10/08/22 02/26/23 Lizz Ann MD PCP - General Family Medicine 02/27/23 documented as of this encounter
--- OUTSIDE RECORDS SUMMARY | 2024-05-02 15:54 | XMS_ITS | Encounter Summary ---
Author Organization [facility] Facility Care Team Providers Care Principal Strategist Name Role Phone No, Physician Primary Care Provider [phone] Unknown, Notinfile Primary Care Provider Unavail able Lizz Ann MD Primary Care Provi veronica Encounter Details Date Type Department Care Team (Latest Contact Info) Description 05/24/2017 Orders Only [facility] CLINCONV ProviderMarlene MD [address] [place] [address] Social History Tobacco Use Types Packs/Day Years Used Date Smoking Tobacco: Never Assessed Sex and Gender Information Value Date Recorded Sex Assigned at Not on file Legal Sex Male 11:22 AM ACUTE CARE ASSISTANT Gender Identity Not on file Sexual Orientation Not on file documented as of this encounter Plan of Treatment Not on file documented as of this encounter Procedures Procedure Name Priority Date/Time Associated Diagnosis Comments SCAN - LABS 05/24/2017 12:00 AM CDT documented in this encounter Results * SCAN - LABS (05/24/2017 12:00 AM CDT) Narrative 05/24/2017 12:00 AM CDT Ordered by an unspecified provider. us Historical Provider Final Res ult documented in this encounter Visit Diagnoses Not on filedocumented in this encounter Care Teams Principal Strategist Relationship Specialty Start Date End Date No, Physician PCP - General 09/29/21 10/07/22 Unknown, Notinfile PCP - General 10/08/22 02/26/23 Lizz Ann MD PCP - General Family Medicine 02/27/23 documented as of this encounter
--- OUTSIDE RECORDS SUMMARY | 2024-05-02 15:54 | XMS_ITS | Encounter Summary ---
Author Organization [facility] Facility Care Team Providers Care Steam Train Driver Name Role Phone No, Physician Primary Care Provider [phone] Unknown, Notinfile Primary Care Provider Unavail able Lizz Ann MD Primary Care Provi veronica Encounter Details Date Type Department Care Team (Latest Contact Info) Description 09/08/2016 Orders Only [facility] CLINCONV ProviderMarlene MD [address] [place] [address] Social History Tobacco Use Types Packs/Day Years Used Date Smoking Tobacco: Never Assessed Sex and Gender Information Value Date Recorded Sex Assigned at Not on file 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 us Historical Provider Final Res ult documented in this encounter Visit Diagnoses Not on filedocumented in this encounter Care Teams Steam Train Driver Relationship Specialty Start Date End Date No, Physician PCP - General 09/29/21 10/07/22 Unknown, Notinfile PCP - General 10/08/22 02/26/23 Lizz Ann MD PCP - General Family Medicine 02/27/23 documented as of this encounter
--- OUTSIDE RECORDS SUMMARY | 2024-05-02 15:54 | XMS_ITS | Encounter Summary ---
Author Organization [facility] Facility Care Team Providers Care Boardmarker Name Role Phone No, Physician Primary Care Provider [phone] Unknown, Notinfile Primary Care Provider Unavail able Lizz Ann MD Primary Care Provi veronica Encounter Details Date Type Department Care Team (Latest Contact Info) Description 10/21/2016 Orders Only [facility] CLINCONV ProviderMarlene MD [address] [place] [address] Social History Tobacco Use Types Packs/Day Years Used Date Smoking Tobacco: Never Assessed Sex and Gender Information Value Date Recorded Sex Assigned at Not on file 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 us Historical Provider Final Res ult documented in this encounter Visit Diagnoses Not on filedocumented in this encounter Care Teams Boardmarker Relationship Specialty Start Date End Date No, Physician PCP - General 09/29/21 10/07/22 Unknown, Notinfile PCP - General 10/08/22 02/26/23 Lizz Ann MD PCP - General Family Medicine 02/27/23 documented as of this encounter
--- OUTSIDE RECORDS SUMMARY | 2024-05-02 15:54 | XMS_ITS | Clinical Summary ---
Author Organization [facility] Address [address] [place] [address] Care Team Providers Care Email Marketing Specialist Name Role Phone Rohan Cabral MD Primary Care Provider [phone] Allergies Active Allergy Reactions Criticality Noted Date Comments Penicillins Unknown 02/18/2024 Tuberculin Tests Unknown 02/18/2024 Encounters Date Type Department Care Team Description 02/18/2024 8:55 AM REFERENCE ASSISTANT - 02/18/2024 11:54 AM REFERENCE ASSISTANT Emergency [facility] [place] [address] Anson Garcia MD Hip Pain Discharge Disposition: Home or Self Care (Routine Discharge) 02/18/2024 Travel from Last 3 Months Social History Tobacco Use Types Packs/Day Years Used Date Smoking Tobacco: Never Smokeless Tobacco: Never Tobacco Cessation:Counseling Given: Not Answered Alcohol Use Standard Drinks/Week Comments Never 0 (1 standard drink = 0.6 oz pur e alcohol) Sex and Gender Information Value Date Recorded Sex Assigned at Not on file Legal Sex Male 8:51 AM REFERENCE ASSISTANT Gender Identity Not on file Sexual Orientation Not on file Last Filed Vital Signs Vital Sign Reading Time Taken Comments Blood Pressure 130/87 02/18/2024 11:53 AM REFERENCE ASSISTANT Pulse 97 02/18/2024 11:53 AM REFERENCE ASSISTANT Temperature 36.8 C (98.3 F) 02/18/2024 8:56 AM REFERENCE ASSISTANT Respiratory Rate 18 02/18/2024 11:5 3 AM REFERENCE ASSISTANT Oxygen Saturation 97% 02/18/2024 11: 53 AM REFERENCE ASSISTANT Inhaled Oxygen Concentration - - Weight 65.7 kg (144 lb 13.5 oz) 02/18/2024 9:07 AM REFERENCE ASSISTANT Height 172.7 cm (5' 8 ) 02/18/2024 9:07 AM REFERENCE ASSISTANT Body Mass Index 22.02 02/18/2024 9:07 AM REFERENCE ASSISTANT Plan of Treatment Health Maintenance Due Date Last Done Comments Colorectal Cancer Screening Colonoscopy (10 Years) 1961 Annual Physical 1964 Hepatitis C 07/25/1979 Zoster Vaccines (1 of 2) 07/25/2011 COVID-19 Vaccine ( season) 2023 12/09/2022, 01/15/2021, 03/15/2020, Additional history exists DTaP, Tdap and Td Vaccines (2 - Td or Tdap) 11/16/2032 11/16/2022 RSV Immunization or 60+ Years (1 - 1-dose 75+ series) 2036 Influenza Adult Completed 11/19/2023, 12/09/2022 Meningococcal B Vaccine Aged Out No l onger eligible based on patient's age to complete this topic Meningococcal Vaccine Aged Out No rico henry eligible based on patient's age to complete this topic Pneumococcal Vaccine: Pediatrics (0 to 5 Years) and At-Risk Patients (6 to 64 Years) Aged Out No longer eligible based on patient's age to complete this topic RSV Immunizations Under 20 Months Aged Out No longer eligible based on patient's age to complete this topic Procedures Procedure Name Priority Date/Time Associated Diagnosis Comments XR HIP LT 2V STAT 02/18/2024 9:34 AM REFERENCE ASSISTANT XR PELVIS 1 OR 2 VIEWS STAT 02/18/2024 9:33 AM REFERENCE ASSISTANT from Last 3 Months Results * XR HIP LT 2V (02/18/2024 9:34 AM REFERENCE ASSISTANT) Anatomical Region Laterality Modality Hip Radiographic Jessie ging 02/18/2024 9:47 AM REFERENCE ASSISTANT Impressions 02/18/2024 9:52 AM REFERENCE ASSISTANT IMPRESSION: 1. Bilateral hip osteonecrosis, left greater than right with loss of femoral head contour. Unable to assess for change given lack of comparison exam. 2. Severe bilateral hip osteoarthrosis. 3. Heterotopic calcification surrounding the left hip. Referred By: Interpreted By: Betsy King DO, 02/18/2024 9:47 AM Narrative 02/18/2024 9:52 AM REFERENCE ASSISTANT [place] [address] EXAMINATION: XR HIP LT 2V, XR PELVIS 1 OR 2 VIEWS, 02/18/2024 9:47 AM INDICATION: Trauma COMPARISON(S): None. TECHNIQUE: AP pelvis and 2 views left hip, 3 radiographs. FINDINGS: Bones/joints: Complete loss of the right and left hip joint spaces with sclerosis, osseous hypertrophy/remodeling, and cystic change. Left femoral intramedullary liz and femoral head/neck screw. There is extensive calcification surrounding the left superior/lateral femoral acetabular joint which appears continuous with the greater trochanter. Loss of the bilateral femoral head contours with sclerosis. Soft tissues: Imaged soft tissues are unremarkable. Procedure Note Betsy King DO - 02/18/[address] [address] EXAMINATION: XR HIP LT 2V, XR PELVIS 1 OR 2 VIEWS, 02/18/2024 9:47 AM INDICATION: Trauma COMPARISON(S): None. TECHNIQUE: AP pelvis and 2 views left hip, 3 radiographs. FINDINGS: Bones/joints: Complete loss of the right and left hip joint spaces withsclerosis, osseous hypertrophy/remodeling, and cystic change. Leftfemoral intramedullary liz and femoral head/neck screw. There isextensive calcification surrounding the left superior/lateral femoralacetabular joint which appears continuous with the greater trochanter.Loss of the bilateral femoral head contours with sclerosis. Soft tissues: Imaged soft tissues are unremarkable. IMPRESSION: 1. Bilateral hip osteonecrosis, left greater than right with loss offemoral head contour. Unable to assess for change given lack ofcomparison exam. 2. Severe bilateral hip osteoarthrosis. 3. Heterotopic calcification surrounding the left hip. Referred By: Interpreted By: Betsy King DO, 02/18/2024 9:47 AM Anson Garcia MD GENERAL IMAGING Final Result * XR PELVIS 1 OR 2 VIEWS (02/18/2024 9:33 AM REFERENCE ASSISTANT) Anatomical Region Laterality Modality Pelvis Radiographic Jessie ging 02/18/2024 9:47 AM REFERENCE ASSISTANT Impressions 02/18/2024 9:52 AM REFERENCE ASSISTANT IMPRESSION: 1. Bilateral hip osteonecrosis, left greater than right with loss of femoral head contour. Unable to assess for change given lack of comparison exam. 2. Severe bilateral hip osteoarthrosis. 3. Heterotopic calcification surrounding the left hip. Referred By: Interpreted By: Betsy King DO, 02/18/2024 9:47 AM Narrative 02/18/2024 9:52 AM REFERENCE ASSISTANT [address] [address] EXAMINATION: XR HIP LT 2V, XR PELVIS 1 OR 2 VIEWS, 02/18/2024 9:47 AM INDICATION: Trauma COMPARISON(S): None. TECHNIQUE: AP pelvis and 2 views left hip, 3 radiographs. FINDINGS: Bones/joints: Complete loss of the right and left hip joint spaces with sclerosis, osseous hypertrophy/remodeling, and cystic change. Left femoral intramedullary liz and femoral head/neck screw. There is extensive calcification surrounding the left superior/lateral femoral acetabular joint which appears continuous with the greater trochanter. Loss of the bilateral femoral head contours with sclerosis. Soft tissues: Imaged soft tissues are unremarkable. Procedure Note Betsy King DO - [facility] [place], [place] [address] EXAMINATION: XR HIP LT 2V, XR PELVIS 1 OR 2 VIEWS, 02/18/2024 9:47 AM INDICATION: Trauma COMPARISON(S): None. TECHNIQUE: AP pelvis and 2 views left hip, 3 radiographs. FINDINGS: Bones/joints: Complete loss of the right and left hip joint spaces withsclerosis, osseous hypertrophy/remodeling, and cystic change. Leftfemoral intramedullary liz and femoral head/neck screw. There isextensive calcification surrounding the left superior/lateral femoralacetabular joint which appears continuous with the greater trochanter.Loss of the bilateral femoral head contours with sclerosis. Soft tissues: Imaged soft tissues are unremarkable. IMPRESSION: 1. Bilateral hip osteonecrosis, left greater than right with loss offemoral head contour. Unable to assess for change given lack ofcomparison exam. 2. Severe bilateral hip osteoarthrosis. 3. Heterotopic calcification surrounding the left hip. Referred By: Interpreted By: Betsy King DO, 02/18/2024 9:47 AM Anson Garcia MD GENERAL IMAGING Final Result from Last 3 Months Insurance MEDICARE PART A MEDICAID Care Teams Email Marketing Specialist Relationship Specialty Start Date End Date Rohan Cabral MD [address] [address] PCP - General Psychiatry 02/18/24
--- OUTSIDE RECORDS SUMMARY | 2024-05-02 15:54 | XMS_ITS | Encounter Summary ---
Author Organization [facility] Facility Care Team Providers Care Skilled Nursing Professional Name Role Phone No, Physician Primary Care Provider [phone] Unknown, Notinfile Primary Care Provider Unavail able Lizz Ann MD Primary Care Provi veronica Encounter Details Date Type Department Care Team (Latest Contact Info) Description 09/21/2016 Orders Only [facility] CLINCONV ProviderMarlene MD [address] [place] [address] Social History Tobacco Use Types Packs/Day Years Used Date Smoking Tobacco: Never Assessed Sex and Gender Information Value Date Recorded Sex Assigned at Not on file 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 us Historical Provider Final Res ult documented in this encounter Visit Diagnoses Not on filedocumented in this encounter Care Teams Skilled Nursing Professional Relationship Specialty Start Date End Date No, Physician PCP - General 09/29/21 10/07/22 Unknown, Notinfile PCP - General 10/08/22 02/26/23 Lizz Ann MD PCP - General Family Medicine 02/27/23 documented as of this encounter
--- OUTSIDE RECORDS SUMMARY | 2024-05-02 15:54 | XMS_ITS | Encounter Summary ---
Author Organization [facility] Facility Care Team Providers Care Service Sprinkler Helper Name Role Phone No, Physician Primary Care Provider [phone] Unknown, Notinfile Primary Care Provider Unavail able Lizz Ann MD Primary Care Provi veronica Encounter Details Date Type Department Care Team (Latest Contact Info) Description 03/01/2017 Orders Only [facility] CLINCONV ProviderMarlene MD [address] [place] [address] Social History Tobacco Use Types Packs/Day Years Used Date Smoking Tobacco: Never Assessed Sex and Gender Information Value Date Recorded Sex Assigned at Not on file 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 us Historical Provider Final Res ult documented in this encounter Visit Diagnoses Not on filedocumented in this encounter Care Teams Service Sprinkler Helper Relationship Specialty Start Date End Date No, Physician PCP - General 09/29/21 10/07/22 Unknown, Notinfile PCP - General 10/08/22 02/26/23 Lizz Ann MD PCP - General Family Medicine 02/27/23 documented as of this encounter
--- OUTSIDE RECORDS SUMMARY | 2024-05-02 15:54 | XMS_ITS | CONTINUITY OF CARE DOCUMENT ---
Author Name jose garcia Address Unknown Organization [facility] Address [address] [place] [address] [address] [place] [address] Phone [phone] Care Team Providers Care Lump Room Supervisor Name Role Phone jose garcia Unavailable Unavailable INSURANCE PROVIDERS Payer name Policy type / Coverage type [place] red republican ID [place] [employer] [id number]
--- OUTSIDE RECORDS SUMMARY | 2024-05-02 15:54 | XMS_ITS | Encounter Summary ---
Author Organization [facility] Facility Care Team Providers Care Bank Courier Name Role Phone No, Physician Primary Care Provider [phone] Unknown, Notinfile Primary Care Provider Unavail able Lizz Ann MD Primary Care Provi veronica Encounter Details Date Type Department Care Team (Latest Contact Info) Description 02/16/2017 Orders Only [facility] CLINCONV ProviderMarlene MD [address] [place] [address] Social History Tobacco Use Types Packs/Day Years Used Date Smoking Tobacco: Never Assessed Sex and Gender Information Value Date Recorded Sex Assigned at Not on file Legal Sex Male 11:22 AM OVERLOCK OPERATOR Gender Identity Not on file Sexual Orientation Not on file documented as of this encounter Plan of Treatment Not on file documented as of this encounter Procedures Procedure Name Priority Date/Time Associated Diagnosis Comments SCAN - LABS 02/16/2017 12:00 AM OVERLOCK OPERATOR documented in this encounter Results * SCAN - LABS (02/16/2017 12:00 AM OVERLOCK OPERATOR) Narrative 02/16/2017 12:00 AM OVERLOCK OPERATOR Ordered by an unspecified provider. us Historical Provider Final Res ult documented in this encounter Visit Diagnoses Not on filedocumented in this encounter Care Teams Bank Courier Relationship Specialty Start Date End Date No, Physician PCP - General 09/29/21 10/07/22 Unknown, Notinfile PCP - General 10/08/22 02/26/23 Lizz Ann MD PCP - General Family Medicine 02/27/23 documented as of this encounter
--- OUTSIDE RECORDS SUMMARY | 2024-05-02 15:54 | XMS_ITS | Clinical Summary ---
Author Organization [employer] [place] Address [address] [place] [address] Care Team Providers Care Agency Sales Management Assistant Name Role Phone Unavailable Primary Care Provider Unavailabl e Allergies Active Allergy Reactions Criticality Noted Date Comments Penicillins Rash,Unknown Medium 09/19/2021 Medications LORazepam (ATIVAN) 0.5 mg tablet Take 0.5 mg by mouth daily. 3 Active meloxicam (MOBIC) 15 mg tablet Take 15 mg by mouth daily. 4 Active tamsulosin (FLOMAX) 0.4 mg capsule Take 0.4 mg by mouth daily. 3 Active omeprazole (PriLOSEC) 20 mg Tablet, Delayed Release (E.C.) 20 mg by See Admin Instructions route daily before breakfast. Active melatonin 5 mg Tablet Take 5 mg by mouth nightly as needed for Insomnia. Active MULTIVITAMIN ORAL Take by mouth daily. Active Active Problems No known active problems Encounters Date Type Department Care Team Description 05/02/2024 1:30 PM CDT Office Visit [facility] Oncology and Hematology - [place] [address] [address] [place] [address] Jose Blankenship MD Lymphocytosis (Primary Dx) from Last 3 Months Family History Medical History Relation Name Comments Heart Disease Father Diabetes Mother Bone Cancer Sister 1 Breast Cancer Sister 1 Atrial fibrillation Sister 2 No Known Problems Sister 3 Relation Name Status Comments Father Mother Sister 1 Sister 2 Alive Sister 3 Alive Social History Tobacco Use Types Packs/Day Years Used Date Smoking Tobacco: Never Smokeless Tobacco: Never Alcohol Use Standard Drinks/Week Comments Never 0 (1 standard drink = 0.6 oz pur e alcohol) Sex and Gender Information Value Date Recorded Sex Assigned at Not on file 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 Gender Identity Not on file Sexual Orientation [...] Mass Index 19.77 05/02/2024 1:28 PM CDT Plan of Treatment Health Maintenance Due Date Last Done Comments DTAP/TDAP/TD VACCINES (1 - Tdap) 1980 Preventative Visit-Managed Medicaid 1980 COLORECTAL SCREENING 2006 Colorectal Cancer Screening 2006 FIT-DNA Q 3 years 2006 FIT/FOBT Q 1 year 2006 Flex Sig/CT Colonography Q 5 years 2006 ZOSTER VACCINE (1 of 2) 07/25/2011 INFLUENZA VACCINE (#1) 2023 11/19/2021 COVID-19 Vaccine ( season) 2023 01/15/2021, 03/15/2020, 02/23/2020 RSV VACCINE (60+ or ) (1 - 1-dose 75+ series) 2036 Insurance MEDICARE [facility] ONLY [place]
--- OUTSIDE RECORDS SUMMARY | 2024-05-02 15:54 | XMS_ITS | Encounter Summary ---
Author Organization [facility] Facility Care Team Providers Care Director State Pharmacy Name Role Phone No, Physician Primary Care Provider [phone] Unknown, Notinfile Primary Care Provider Unavail able Lizz Ann MD Primary Care Provi veronica Encounter Details Date Type Department Care Team (Latest Contact Info) Description 01/04/2017 Orders Only [facility] CLINCON[facility] ProviderMarlene MD [address] [place] [address] Social History Tobacco Use Types Packs/Day Years Used Date Smoking Tobacco: Never Assessed Sex and Gender Information Value Date Recorded Sex Assigned at Not on file 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 us Historical Provider Final Res ult documented in this encounter Visit Diagnoses Not on filedocumented in this encounter Care Teams Director State Pharmacy Relationship Specialty Start Date End Date No, Physician PCP - General 09/29/21 10/07/22 Unknown, Notinfile PCP - General 10/08/22 02/26/23 Lizz Ann MD PCP - General Family Medicine 02/27/23 documented as of this encounter
--- OUTSIDE RECORDS SUMMARY | 2024-05-02 15:54 | XMS_ITS | Encounter Summary ---
Author Organization 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 us Historical Provider Final Res ult documented in this encounter Visit Diagnoses Not on filedocumented in this encounter Care Teams Riveter Relationship Specialty Start Date End Date No, Physician PCP - General 09/29/21 10/07/22 Unknown, Notinfile PCP - General 10/08/22 02/26/23 Lizz Ann MD PCP - General Family Medicine 02/27/23 documented as of this encounter
--- OUTSIDE RECORDS SUMMARY | 2024-05-02 15:54 | XMS_ITS | Encounter Summary ---
Author Organization [facility] Facility Care Team Providers Care Utilization Review Nurse Name Role Phone No, Physician Primary Care Provider [phone] Unknown, Notinfile Primary Care Provider Unavail able Lizz Ann MD Primary Care Provi veronica Encounter Details Date Type Department Care Team (Latest Contact Info) Description 01/26/2017 Orders Only [facility] CLINCONV ProviderMarlene MD [address] [place] [address] Social History Tobacco Use Types Packs/Day Years Used Date Smoking Tobacco: Never Assessed Sex and Gender Information Value Date Recorded Sex Assigned at Not on file Legal Sex Male 11:22 AM OFFICE MOVER Gender Identity Not on file Sexual Orientation Not on file documented as of this encounter Plan of Treatment Not on file documented as of this encounter Procedures Procedure Name Priority Date/Time Associated Diagnosis Comments SCAN - LABS 01/26/2017 12:00 AM OFFICE MOVER documented in this encounter Results * SCAN - LABS (01/26/2017 12:00 AM OFFICE MOVER) Narrative 01/26/2017 12:00 AM OFFICE MOVER Ordered by an unspecified provider. us Historical Provider Final Res ult documented in this encounter Visit Diagnoses Not on filedocumented in this encounter Care Teams Utilization Review Nurse Relationship Specialty Start Date End Date No, Physician PCP - General 09/29/21 10/07/22 Unknown, Notinfile PCP - General 10/08/22 02/26/23 Lizz Ann MD PCP - General Family Medicine 02/27/23 documented as of this encounter
--- OUTSIDE RECORDS SUMMARY | 2024-05-02 15:55 | XMS_ITS | Encounter Summary ---
Author Organization [facility] Facility Care Team Providers Care Ground Water Pump Installer Name Role Phone No, Physician Primary Care Provider [phone] Unknown, Notinfile Primary Care Provider Unavail able Lizz Ann MD Primary Care Provi veronica Encounter Details Date Type Department Care Team (Latest Contact Info) Description 04/19/2017 Orders Only [facility] CLINCONV ProviderMarlene MD [address] [place] [address] Social History Tobacco Use Types Packs/Day Years Used Date Smoking Tobacco: Never Assessed Sex and Gender Information Value Date Recorded Sex Assigned at Not on file 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 us Historical Provider Final Res ult documented in this encounter Visit Diagnoses Not on filedocumented in this encounter Care Teams Ground Water Pump Installer Relationship Specialty Start Date End Date No, Physician PCP - General 09/29/21 10/07/22 Unknown, Notinfile PCP - General 10/08/22 02/26/23 Lizz Ann MD PCP - General Family Medicine 02/27/23 documented as of this encounter
--- OUTSIDE RECORDS SUMMARY | 2024-05-02 15:55 | XMS_ITS | Encounter Summary ---
Author Organization [facility] Facility Care Team Providers Care District Director Name Role Phone No, Physician Primary Care Provider [phone] Unknown, Notinfile Primary Care Provider Unavail able Lizz Ann MD Primary Care Provi veronica Encounter Details Date Type Department Care Team (Latest Contact Info) Description 07/04/2015 Orders Only [facility] CLINCONV ProviderMarlene MD [address] [place] [address] Social History Tobacco Use Types Packs/Day Years Used Date Smoking Tobacco: Never Assessed Sex and Gender Information Value Date Recorded Sex Assigned at Not on file 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 us Historical Provider Final Res ult documented in this encounter Visit Diagnoses Not on filedocumented in this encounter Care Teams District Director Relationship Specialty Start Date End Date No, Physician PCP - General 09/29/21 10/07/22 Unknown, Notinfile PCP - General 10/08/22 02/26/23 Lizz Ann MD PCP - General Family Medicine 02/27/23 documented as of this encounter
--- OUTSIDE RECORDS SUMMARY | 2024-05-02 15:55 | XMS_ITS | Encounter Summary ---
Author Organization [facility] Facility Care Team Providers Care Lunch Truck Operator Name Role Phone No, Physician Primary Care Provider [phone] Unknown, Notinfile Primary Care Provider Unavail able Lizz Ann MD Primary Care Provi veronica Encounter Details Date Type Department Care Team (Latest Contact Info) Description 08/01/2015 Orders Only [facility] CLINCONV ProviderMarlene MD [address] [place] [address] Social History Tobacco Use Types Packs/Day Years Used Date Smoking Tobacco: Never Assessed Sex and Gender Information Value Date Recorded Sex Assigned at Not on file 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 us Historical Provider Final Res ult documented in this encounter Visit Diagnoses Not on filedocumented in this encounter Care Teams Lunch Truck Operator Relationship Specialty Start Date End Date No, Physician PCP - General 09/29/21 10/07/22 Unknown, Notinfile PCP - General 10/08/22 02/26/23 Lizz Ann MD PCP - General Family Medicine 02/27/23 documented as of this encounter
--- OUTSIDE RECORDS SUMMARY | 2024-05-02 15:55 | XMS_ITS | Encounter Summary ---
Author Organization 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 us Historical Provider Final Res ult documented in this encounter Visit Diagnoses Not on filedocumented in this encounter Care Teams Cd Technician Relationship Specialty Start Date End Date No, Physician PCP - General 09/29/21 10/07/22 Unknown, Notinfile PCP - General 10/08/22 02/26/23 Lizz Ann MD PCP - General Family Medicine 02/27/23 documented as of this encounter
--- OUTSIDE RECORDS SUMMARY | 2024-05-02 15:55 | XMS_ITS | Encounter Summary ---
Author Organization [facility] Facility Care Team Providers Care Diversified Crops I Farmworker Name Role Phone No, Physician Primary Care Provider [phone] Unknown, Notinfile Primary Care Provider Unavail able Lizz Ann MD Primary Care Provi veronica Encounter Details Date Type Department Care Team (Latest Contact Info) Description 05/04/2017 Orders Only [facility] CLINCONV ProviderMarlene MD [address] [place] [address] Social History Tobacco Use Types Packs/Day Years Used Date Smoking Tobacco: Never Assessed Sex and Gender Information Value Date Recorded Sex Assigned at Not on file 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 us Historical Provider Final Res ult documented in this encounter Visit Diagnoses Not on filedocumented in this encounter Care Teams Diversified Crops I Farmworker Relationship Specialty Start Date End Date No, Physician PCP - General 09/29/21 10/07/22 Unknown, Notinfile PCP - General 10/08/22 02/26/23 Lizz Ann MD PCP - General Family Medicine 02/27/23 documented as of this encounter
--- OUTSIDE RECORDS SUMMARY | 2024-05-02 15:55 | XMS_ITS | Encounter Summary ---
Author Organization [facility] Facility Care Team Providers Care Test And Balance Engineer Name Role Phone No, Physician Primary Care Provider [phone] Unknown, Notinfile Primary Care Provider Unavail able Lizz Ann MD Primary Care Provi veronica Encounter Details Date Type Department Care Team (Latest Contact Info) Description 12/05/2015 Orders Only [facility] CLINCONV ProviderMarlene MD [address] [place] [address] Social History Tobacco Use Types Packs/Day Years Used Date Smoking Tobacco: Never Assessed Sex and Gender Information Value Date Recorded Sex Assigned at Not on file 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 us Historical Provider Final Res ult documented in this encounter Visit Diagnoses Not on filedocumented in this encounter Care Teams Test And Balance Engineer Relationship Specialty Start Date End Date No, Physician PCP - General 09/29/21 10/07/22 Unknown, Notinfile PCP - General 10/08/22 02/26/23 Lizz Ann MD PCP - General Family Medicine 02/27/23 documented as of this encounter
--- OUTSIDE RECORDS SUMMARY | 2024-05-02 15:55 | XMS_ITS | Encounter Summary ---
Author Organization [facility] Facility Care Team Providers Care Video Games Mechanic Name Role Phone No, Physician Primary Care Provider [phone] Unknown, Notinfile Primary Care Provider Unavail able Lizz Ann MD Primary Care Provi veronica Encounter Details Date Type Department Care Team (Latest Contact Info) Description 04/29/2017 Orders Only [facility] CLINCONV ProviderMarlene MD [address] [place] [address] Social History Tobacco Use Types Packs/Day Years Used Date Smoking Tobacco: Never Assessed Sex and Gender Information Value Date Recorded Sex Assigned at Not on file 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 us Historical Provider Final Res ult documented in this encounter Visit Diagnoses Not on filedocumented in this encounter Care Teams Video Games Mechanic Relationship Specialty Start Date End Date No, Physician PCP - General 09/29/21 10/07/22 Unknown, Notinfile PCP - General 10/08/22 02/26/23 Lizz Ann MD PCP - General Family Medicine 02/27/23 documented as of this encounter
--- OUTSIDE RECORDS SUMMARY | 2024-05-02 15:55 | XMS_ITS | Encounter Summary ---
Author Organization [facility] Facility Care Team Providers Care Playback Operator Name Role Phone No, Physician Primary Care Provider Unknown, Notinfile Primary Care Provider Unavail able Lizz Ann MD Primary Care Provi veronica Encounter Details Date Type Department Care Team (Latest Contact Info) Description 09/27/2015 Orders Only [facility] CLINCONV ProviderMarlene MD [address] [place] [address] Social History Tobacco Use Types Packs/Day Years Used Date Smoking Tobacco: Never Assessed Sex and Gender Information Value Date Recorded Sex Assigned at Not on file 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 us Historical Provider Final Res ult documented in this encounter Visit Diagnoses Not on filedocumented in this encounter Care Teams Playback Operator Relationship Specialty Start Date End Date No, Physician PCP - General 09/29/21 10/07/22 Unknown, Notinfile PCP - General 10/08/22 02/26/23 Lizz Ann MD PCP - General Family Medicine 02/27/23 documented as of this encounter
[2024-05-02 16:31] LABS: Alanine Aminotransferase 18 U/L (6-50); Albumin Level 4.6 g/dL (3.5-5.1); Alkaline Phosphatase 148 U/L (38-126); Anion Gap 10 mmol/L (4-12); Aspartate Amino Transferase 57 U/L (17-59); Bilirubin,Total 0.7 mg/dL (0.2-1.3); Blood Urea Nitrogen 6 mg/dL (9-20); CRP < 0.5 mg/dL (<1.0); Calcium 9.3 mg/dL (8.4-10.2); Carbon Dioxide 27 mmol/L (22-30); Chloride 95 mmol/L (98-107); Estimated Glomerular Filt Rate > 60; Glucose 98 mg/dL (65-110); Lactate Dehydrogenase 257 U/L (120-246); Potassium 4.2 mmol/L (3.4-5.0); Sodium 132 mmol/L (137-145)
== END 2024-05-02 14:03 | disposition home or self-care (01) ==
LOC: ANHLAB 14:10
PROVIDERS: Visit Provider Internal Medicine Hematology & Oncology
DX: D72.820 Lymphocytosis (symptomatic) (principal)
CPT/HCPCS: 36415; 80053; 83615; 85025; 86140; 88184

== ENCOUNTER 2024-11-28 13:27 | Outpatient (CLI) | payer MEDICARE, MEDICAID, SELFPAY ==
--- OUTSIDE RECORDS SUMMARY | 2024-11-28 14:15 | XMS_ITS | Encounter Summary ---
Author Organization [facility] Address [address] [place] [address] Care Team Providers Care Software Test Automation Engineer Name Role Phone Unavailable Primary Care Provider Unavailabl e Reason for Visit * Reason Comments Follow Up Cancer Encounter Details Date Type Department Care Team (Late st Contact Info) Description 11/28/2024 2:15 PM CDT Office Visit [facility] Oncology and Hematology - [place] [address] [facility] [address] [place] [address] Jose Blankenship MD [address] 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 Gender Identity Not on file Sexual Orientation Not on file documented as of this encounter Last Filed Vital Signs Vital Sign Reading Time Taken Comments Blood Pressure 138/85 11/28/2024 1:53 PM CDT Pulse 121 11/28/2024 1:53 PM CDT Temperature 36.9 C (98.5 F) 11/28/2024 1:53 PM CDT Respiratory Rate 16 11/28/2024 1:53 PM CDT Oxygen Saturation 97% 11/28/2024 1:53 PM CDT Inhaled Oxygen Concentration - - Weight 68 kg (150 lb) 11/28/2024 1:53 PM CDT Height - - Body Mass Index 22.81 05/02/2024 1:28 PM CDT documented in this encounter Progress Notes * Jose Blankenship MD - 11/28/2024 1:58 PM CDT HEMATOLOGY / ONCOLOGY PROGRESS NOTE Patient Identification: Name: Neptali Byrd Age: 64 y.o. Sex: male : 1960 DIAGNOSIS Chronic lymphocytic leukemia status post flow cytometric analysis done on May 02, 2024. CURRENT TREATMENT Surveillance TREATMENT HISTORY SUBJECTIVE Patient came to the office for follow-up visit. He denies any night sweats fevers and chills. He has gained about 6 to 7 pound weight. No new lumps bumps and lymphadenopathy. No other new complaints. Review of system Constitutional: Patient did not mention fevers, sweats, denies any tiredness and fatigue, 7 pound weight gain HEENT: Patient did not mention sinus congestion, hearing or vision problems Respiratory: Patient did not mention cough, dyspnea, wheeze Cardiovascular: Patient did not mention chest pain, exertional chest pressure/discomfort, nausea, syncope, shortness of breath GI: Patient did not mention constipation, diarrhea, dsyphagia, reflux symptoms, vomiting, melena : Patient did not mention dysuria, frequency, incontinence, urgency Integumentary system: no lymphadenopathy, sweats, flushing Musculoskeletal: Patient not mention: myalgia, arthralgia Neurological: Patient did not mention blurry or disturbed vision, numbness/weakness, dizziness Skin: No lumps, bumps or rashes. 12 point review of system was reviewed Objective: Vital signs in last 24 hours: As per nursing note Exam: General appearance: alert, cooperative, no distress, appears stated age Head: normocephalic, without obvious abnormality, atraumatic Eyes: conjunctivae/corneas clear, EOM's intact Ears: normal external ear canals AU Nose: Nares normal. Septum midline. Mucosa normal. No drainage or sinus tenderness Throat: Lips, mucosa, and tongue normal. Teeth and gums normal Neck: supple, symmetrical, trachea midline. Lungs: clear to auscultation bilaterally Heart: regular rate and rhythm, S1, S2 normal, no murmur, click, rub or gallop Abdomen: soft, non-tender. Bowel sounds normal. No masses, No organomegaly Extremities: extremities normal, atraumatic, no cyanosis or edema Skin: Skin color, texture, turgor normal. No rashes or lesions Lymph nodes: No lymphadenopathy Neuro: No obvious focal deficit Exam as above PATH LABS Labs from November 21 showed WBC 14.6 hemoglobin 12.6 platelet 131,000 neutrophils 38% lymphocyte 56%calcium 8.8 total bilirubin 0.6 @IMAGEIMP@ Assessment: Plan: There are no active problems to display for this patient. Chronic lymphocytic leukemia status post flow cytometric analysis done on May 02, 2024. Clinically remains asymptomatic. On my examination there is no evidence of lymphadenopathy. Labs showed mild anemia and thrombocytopenia. I have again discussed the indications to treat CLL in detail. We will continue to observe and see him back in 6 months. GERD. Stable on Prilosec. BPH. Stable on tamsulosin. Follow-up in 6 months 11/28/2024 Jose Blankenship MD documented in this encounter Plan of Treatment Upcoming Encounters Date Type Department Care Team (Late st Contact Info) Description 05/29/2025 1:00 PM CDT Office Visit [facility] Oncology and Hematology [facility] [address] [facility] [address] [place] [address] Jose Blankenship MD [address] [facility] [address] [place] [address] Scheduled Orders Name Type Priority Associated Diagnoses Orde r Schedule CBC WITH DIFFERENTIAL Lab Stat CLL (chronic lymphocytic leukemia) Expected: 05/29/2025, Expires: 11/28/2025 BASIC METABOLIC PANEL Lab Stat CLL (chronic lymphocytic leukemia) Expected: 05/29/2025, Expires: 11/28/2025 LACTATE DEHYDROGENASE Lab Routine CLL (chronic lymphocytic leukemia) Expected: 05/29/2025, Expires: 11/28/2025 documented as of this encounter Visit Diagnoses Diagnosis CLL (chronic lymphocytic leukemia)- Primary Chronic lymphoid leukemia, without mention of having achieved remission documented in this encounter
--- OUTSIDE RECORDS SUMMARY | 2024-11-28 15:22 | XMS_ITS | Encounter Summary ---
Author Organization [facility] Facility Care Team Providers Care Tool Liaison Name Role Phone No, Physician Primary Care Provider Unknown, Notinfile Primary Care Provider Unavail able Lizz Ann MD Primary Care Provi veronica Encounter Details Date Type Department Care Team (Latest Contact Info) Description 11/30/2016 Orders Only [facility] CLINCONV ProviderMarlene MD [address] [place] [address] Social History Tobacco Use Types Packs/Day Years Used Date Smoking Tobacco: Never Assessed Sex and Gender Information Value Date Recorded Sex Assigned at Not on file 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
--- OUTSIDE RECORDS SUMMARY | 2024-11-28 15:22 | XMS_ITS | Encounter Summary ---
Author Organization [facility] Facility Care Team Providers Care 911 Operator Name Role Phone No, Physician Primary Care Provider [phone] Unknown, Notinfile Primary Care Provider Unavail able Lizz Ann MD Primary Care Provi veronica Encounter Details Date Type Department Care Team (Latest Contact Info) Description 12/28/2016 Orders Only [facility] CLINCONV ProviderMarlene MD [address] [place] [address] Social History Tobacco Use Types Packs/Day Years Used Date Smoking Tobacco: Never Assessed Sex and Gender Information Value Date Recorded Sex Assigned at Not on file 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 us Historical Provider Final Res ult documented in this encounter Visit Diagnoses Not on filedocumented in this encounter Care Teams 911 Operator Relationship Specialty Start Date End Date No, Physician PCP - General 09/29/21 10/07/22 Unknown, Notinfile PCP - General 10/08/22 02/26/23 Lizz Ann MD PCP - General Family Medicine 02/27/23 documented as of this encounter
--- OUTSIDE RECORDS SUMMARY | 2024-11-28 15:22 | XMS_ITS | Encounter Summary ---
Author Organization [facility] Facility Care Team Providers Care Heading Pinner Name Role Phone No, Physician Primary Care Provider [phone] Unknown, Notinfile Primary Care Provider Unavail able Lizz Ann MD Primary Care Provi veronica Encounter Details Date Type Department Care Team (Latest Contact Info) Description 10/05/2016 Orders Only [facility] CLINCONV ProviderMarlene MD [address] [place] [address] Social History Tobacco Use Types Packs/Day Years Used Date Smoking Tobacco: Never Assessed Sex and Gender Information Value Date Recorded Sex Assigned at Not on file 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
--- OUTSIDE RECORDS SUMMARY | 2024-11-28 15:22 | XMS_ITS | Encounter Summary ---
Author Organization [facility] Facility Care Team Providers Care Ice Maker Name Role Phone No, Physician Primary Care Provider [phone] Unknown, Notinfile Primary Care Provider Unavail able Lizz Ann MD Primary Care Provi vreonica Encounter Details Date Type Department Care Team (Latest Contact Info) Description 10/21/2016 Orders Only [facility] CLINCONV ProviderMarlene MD [address] [place] [address] Social History Tobacco Use Types Packs/Day Years Used Date Smoking Tobacco: Never Assessed Sex and Gender Information Value Date Recorded Sex Assigned at Not on file Legal Sex Male 11:22 AM HOME 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
--- OUTSIDE RECORDS SUMMARY | 2024-11-28 15:22 | XMS_ITS | Encounter Summary ---
Author Organization [facility] Address [address] [facility] [place] [address] Care Team Providers Care Lpn Name Role Phone Unavailable Primary Care Provider Unavailabl e Encounter Details Date Type Department Care Team (Late st Contact Info) Description 03/13/2024 Lab Requisition [facility] [address] [place] [address] [place] [address] Social History Tobacco Use Types Packs/Day Years Used Date Smoking Tobacco: Never Assessed Sex and Gender Information Value Date Recorded Sex Assigned at Not on file Legal Sex Male 6:23 PM ROUSTABOUT PUSHER Gender Identity Not on file Sexual Orientation Not on file documented as of this encounter Plan of Treatment Not on file documented as of this encounter Procedures Procedure Name Priority Date/Time Associated Diagnosis Comments DIFFERENTIAL MANUAL STAT 03/13/2024 2 :00 PM ROUSTABOUT PUSHER CBC W AUTO DIFFERENTIAL STAT 03/13/2024 2:00 PM ROUSTABOUT PUSHER documented in this encounter Results * (ABNORMAL) DIFFERENTIAL MANUAL (03/13/2024 2:00 PM ROUSTABOUT PUSHER) Neutrophil % 15(L) 41 - 74 % 03/13/2024 5:05 PM ROUSTABOUT PUSHER [facility] Lymphocyte % 79(H) 17 - 47 % 03/13/2024 5:05 PM ROUSTABOUT PUSHER [facility] Monocyte % 3 3 - 11 % 03/13/2024 5:05 PM ROUSTABOUT PUSHER [facility] Eosinophil % 1 0 - 7 % 03/13/2024 5:05 PM ROUSTABOUT PUSHER [facility] Basophil % 2 0 - 2 % 03/13/2024 5:05 PM ROUSTABOUT PUSHER [facility] Neutrophil Absolute 2.70 1.60 - 7.50 x10E9/L 03/13/2024 5:[address] [facility] Lymphocyte Absolute 14.22(H) 1.00 - 4.40 x10E9/L 03/13/2024 5:[address] [facility] Monocyte Absolute 0.54 0.15 - 1.00 x10E9/L 03/13/2024 5:[address] [facility] Eosinophil Absolute 0.18 0.00 - 0.60 x10E9/L 03/13/2024 5:[address] [facility] Basophil Absolute 0.36(H) 0.00 - 0.13 x10E9/L 03/13/2024 5:[address] [facility] RBC Morphology NORMAL 03/13/2024 5:[address] [facility] Blood BLOOD SPECIMEN / Unknown Venipuncture / Unknown 03/13/2024 2:00 PM ROUSTABOUT PUSHER 03/13/2024 3:42 PM ROUSTABOUT PUSHER [facility] Ort[facility] LAB - HEMATOLOGY ORDERABLES Fin al Result [facility] [address] [place] [address] * (ABNORMAL) CBC WITH DIFFERENTIAL (03/13/2024 2:00 PM ROUSTABOUT PUSHER) WBC 18.0(H) 4.0 - 10.7 x10E9/L 03/13/2024 5:[address] [facility] RBC Count 3.98(L) 4.30 - 5.80 x10E12/L 03/13/2024 5:[address] [facility] Hemoglobin 11.3(L) 13.3 - 17.5 g/dL 03/13/2024 5:[address] [facility] Hematocrit 36.2(L) 38.7 - 51.1 % 03/13/2024 5:[address] [facility] MCV 91.0 80.0 - 98.0 fL 03/13/2024 5:[address] [facility] MCH 28.4 26.7 - 33.6 pg 03/13/2024 5:[address] [facility] MCHC 31.2(L) 31.7 - 36.3 g/dL 03/13/2024 5:[address] [facility] RDW-CV 13.0 11.3 - 14.8 % 03/13/2024 5:[address] [facility] Platelet Count 210 150 - 420 x10E9/L 03/13/2024 5:[address] [facility] MPV 11.2 7.8 - 11.4 fL 03/13/2024 5:05 PM ROUSTABOUT PUSHER [facility] Blood BLOOD SPECIMEN / Unknown Venipuncture / Unknown 03/13/2024 2:00 PM ROUSTABOUT PUSHER 03/13/2024 3:42 PM ROUSTABOUT PUSHER [facility] Ortiz LAB - HEMATOLOGY ORDERABLES Fin al Result Performing Organization Address City/State/[facility] Co de Phone Number [facility] [address] [place], [place] [id number] documented in this encounter Visit Diagnoses Not on filedocumented in this encounter
--- OUTSIDE RECORDS SUMMARY | 2024-11-28 15:22 | XMS_ITS | Encounter Summary ---
Author Organization [facility] Facility Care Team Providers Care Paper Novelty Maker Name Role Phone No, Physician Primary Care Provider [phone] Unknown, Notinfile Primary Care Provider Unavail able Lizz Ann MD Primary Care Provi veronica Encounter Details Date Type Department Care Team (Latest Contact Info) Description 11/16/2016 Orders Only [facility] CLINCONV ProviderMarlene MD [address] [place] [address] Social History Tobacco Use Types Packs/Day Years Used Date Smoking Tobacco: Never Assessed Sex and Gender Information Value Date Recorded Sex Assigned at Not on file 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
--- OUTSIDE RECORDS SUMMARY | 2024-11-28 15:22 | XMS_ITS | Clinical Summary ---
Author Organization [facility] Address [address] [place] [address] Care Team Providers Care Mechanical Assembly Technician Name Role Phone Lizz Ann MD Primary [...] on file Legal Sex Male 11:22 AM MUSHROOM SPAWN MAKER Gender Identity Not on file Sexual Orientation Not on file Obstetrics History Last Filed Vital Signs Vital Sign Reading Time Taken Comments Blood Pressure 154/99 02/27/2023 8:37 AM MUSHROOM SPAWN MAKER Pulse 109 02/27/2023 8:45 AM MUSHROOM SPAWN MAKER Temperature 37.1 C (98.8 F) 02/27/2023 8:38 AM MUSHROOM SPAWN MAKER Respiratory Rate 18 02/27/2023 8:37 AM MUSHROOM SPAWN MAKER Oxygen Saturation 100% 02/27/2023 8:45 AM MUSHROOM SPAWN MAKER Inhaled Oxygen Concentration - - Weight 68 kg (150 lb) 02/27/2023 8:37 AM MUSHROOM SPAWN MAKER Height 170.2 cm (5' 7) 02/27/2023 8:37 AM MUSHROOM SPAWN MAKER Body Mass Index 23.49 02/27/2023 8:37 AM MUSHROOM SPAWN MAKER Plan of Treatment Health Maintenance Due Date Last Done Comments Colon Cancer Screening-Colonoscopy 1960 Depression Screening 1960 Hepatitis C Screening 1960 Prostate Cancer Screening-PSA 1960 Hepatitis B Screening 07/25/1979 Regular Well Visit/Exam 18-64 07/25/1979 Zoster Vaccine (1 of 2) 07/25/2011 Covid-19 Vaccine (2024-2 6 season) 2024 01/15/2021, 03/15/2020, 02/23/2020 Influenza Vaccine (#1) 2024 , 11/19/2021 DTaP/Tdap/Td Vaccine (2 - Td or Tdap) 11/16/2032 11/16/2022 Pneumococcal vaccine <65 Aged Out No longer eligible based on patient's age to complete this topic Insurance MEDICARE [place] MEDICARE [facility] Address: [address] [address] [place] [address] Care Teams Mechanical Assembly Technician Relationship Specialty Start Date End Date Lizz Ann MD PCP - General Family Medicine 02/27/23
--- OUTSIDE RECORDS SUMMARY | 2024-11-28 15:22 | XMS_ITS | Clinical Summary ---
Author Organization [facility] Address [address] [facility] [place] [address] Care Team Providers Care Rand Butting Machine Operator Name Role Phone Unavailable Primary Care Provider Unavailabl e Source Comments [facility],non-owned Affiliates and Associated Physician Practices is amultiple site organization consisting of ambulatory clinics and hospital sitesin [place], [place], [place] and [place]. This disclosure is being madepursuant to the Care Everywhere program and may not contain all information available regarding this patient. Last updated 17.[facility] Buru Buru Social History Tobacco Use Types Packs/Day Years Used Date Smoking Tobacco: Never Assessed Sex and Gender Information Value Date Recorded Sex Assigned at Not on file Legal Sex Male 6:23 PM GENERAL ASSEMBLER Gender Identity Not on file Sexual Orientation Not on file Plan of Treatment Health Maintenance Due Date Last Done Comments COLOGUARD (AGES 45-75) - COL ON CA SCREENING 1960 COLON MONITORING 1960 COLONOSCOPY - COLON CA SCREENING 1961 CT COLONOGRAPHY - COLON CA SCREENING 1960 Colorectal Cancer Screening 1960 FIT - COLON CA SCREENING 1960 FLEX SIG - COLON CA SCREENING 1960 LIPID TESTING 1960 MEDICARE AWV 12 MONTHS 1960 COVID-19 VACCINE (#1) 1966 HIV SCREENING 1976 HEPATITIS C SCREENING 07/20/1979 DTAP/TDAP/TD VACCINES (1 - Tdap) 1980 PNEUMOCOCCAL VACCINE 50+ (1 of 2 - PCV) 1980 ZOSTER VACCINE (1 of 2) 1980 Respiratory Syncytial Virus (RSV) Vaccine Pt: or over 60 yrs (1 - Risk 60-74 years 1-dose series) 2021 DEPRESSION SCREENING 02/16/2024 INFLUENZA VACCINE (#1) 2024 HEPATITIS B VACCINE Aged Out No longe r eligible based on patient's age to complete this topic HIB VACCINE Aged Out No longer eligi ble based on patient's age to complete this topic HPV VACCINE Aged Out No longer eligi ble based on patient's age to complete this topic MENINGOCOCCAL (Group B) VACC INE SHARED DECISION-MAKING Aged Out No longer eligibl e based on patient's age to complete this topic MENINGOCOCCAL GROUPS A/C/Y/W VACCINE Aged Out No longer eligible b ased on patient's age to complete this topic Insurance MEDICARE MEDICAID - [facility] MEDICAID - [place] [id number]
--- OUTSIDE RECORDS SUMMARY | 2024-11-28 15:22 | XMS_ITS | Encounter Summary ---
Author Organization [facility] Facility Care Team Providers Care Biological Science Technician Fish Name Role Phone No, Physician Primary Care Provider [phone] Unknown, Notinfile Primary Care Provider Unavail able Lizz Ann MD Primary Care Provi veronica Encounter Details Date Type Department Care Team (Latest Contact Info) Description 11/02/2016 Orders Only [facility] CLINCONV ProviderMarlene MD [address] [place] [address] Social History Tobacco Use Types Packs/Day Years Used Date Smoking Tobacco: Never Assessed Sex and Gender Information Value Date Recorded Sex Assigned at Not on file Legal Sex Male 11:22 AM PERSONAL COMPANION Gender Identity Not on file Sexual Orientation [...] on filedocumented in this encounter Care Teams Biological Science Technician Fish Relationship Specialty Start Date End Date No, Physician PCP - General 09/29/21 10/07/22 Unknown, Notinfile PCP - General 10/08/22 02/26/23 Lizz Ann MD PCP - General Family Medicine 02/27/23 documented as of this encounter
--- OUTSIDE RECORDS SUMMARY | 2024-11-28 15:23 | XMS_ITS | Clinical Summary ---
Author Organization [facility] Address [address] [place] [address] Care Team Providers Care Systems Programmer Name Role Phone Unavailable Primary Care Provider [...] MULTIVITAMIN ORAL Take by mouth daily. Active busPIRone (BUSPAR) 10 mg tablet Take 10 mg by mouth 2 times daily. 3 Active cloZAPine (CLOZARIL) 50 mg Tablet Take 50 mg by mouth daily. 3 Active cloZAPine (CLOZARIL) 200 mg Tablet Take 200 mg by mouth daily. 5 Active famotidine (PEPCID) 20 mg tablet Take 20 mg by mouth daily. 3 Active lisinopriL (PRINIVIL) 5 mg tablet Take 5 mg by mouth daily. 5 Active Active Problems No known active problems Encounters Date Type Department Care Team Description 11/28/2024 2:15 PM CDT Office Visit [facility] Oncology and Hematology - [place] [address] [place] [address] Jose Blankenship MD CLL (chronic lymphocytic leukemia) (Primary Dx) from Last 3 Months Family [...] on file Legal Sex Male 5:10 PM CARTOON ARTIST Gender Identity Not on file Sexual Orientation [...] (150 lb) 11/28/2024 1:53 PM CDT Height 172.7 cm (5' 8) 05/02/2024 1:28 PM CDT Body Mass Index 22.81 05/02/2024 1:28 PM CDT Plan of Treatment Upcoming Encounters Date Type Department Care Team (Late st Contact Info) Description 05/29/2025 1:00 PM CDT Office Visit [facility] Oncology and Hematology - [place] [address] [facility] [address] [place] [address] Jose Blankenship MD [address] [facility] [address] [place] [address] Health Maintenance Due Date Last Done Comments DTAP/TDAP/TD VACCINES (1 - Tdap) 1980 Traditional Medicare (ACO) A nnual Wellness Visit 1980 ZOSTER VACCINE (1 of 2) 1980 COLORECTAL SCREENING 2006 Colorectal Cancer Screening 2006 FIT-DNA Q 3 years 2006 FIT/FOBT Q 1 year 2006 Flex Sig/CT Colonography Q 5 years 2006 INFLUENZA VACCINE (#1) 2024 11/19/2021 COVID-19 Vaccine ( season) 2024 01/15/2021, 03/15/2020, 02/23/2020 RSV VACCINE (60+ or ) (1 - 1-dose 75+ series) 2036 Insurance [facility]ICARE [facility] ONLY MEDICAID [place] [facility]ICARE [facility] ONLY
--- OUTSIDE RECORDS SUMMARY | 2024-11-28 15:23 | XMS_ITS | Encounter Summary ---
Author Organization [facility] Facility Care Team Providers Care Rack Loader Name Role Phone No, Physician Primary Care Provider [phone] Unknown, Notinfile Primary Care Provider Unavail able Lizz Ann MD Primary Care Provi veronica Encounter Details Date Type Department Care Team (Latest Contact Info) Description 05/24/2017 Orders Only [facility] CLINCONV ProviderMarlene MD [address] [place] [address] Social History Tobacco Use Types Packs/Day Years Used Date Smoking Tobacco: Never Assessed Sex and Gender Information Value Date Recorded Sex Assigned at Not on file Legal Sex Male 11:22 AM STEAM 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
--- OUTSIDE RECORDS SUMMARY | 2024-11-28 15:23 | XMS_ITS | Encounter Summary ---
Author Organization [facility] Facility Care Team Providers Care Chief Operations Officer Name Role Phone No, Physician Primary Care Provider [phone] Unknown, Notinfile Primary Care Provider Unavail able Lizz Ann MD Primary Care Provi veronica Encounter Details Date Type Department Care Team (Latest Contact Info) Description 03/01/2017 Orders Only [facility] CLINCON[facility] ProviderMarlene MD [address] [place] [address] Social History Tobacco Use Types Packs/Day Years Used Date Smoking Tobacco: Never Assessed Sex and Gender Information Value Date Recorded Sex Assigned at Not on file 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 us Historical Provider Final Res ult documented in this encounter Visit Diagnoses Not on filedocumented in this encounter Care Teams Chief Operations Officer Relationship Specialty Start Date End Date No, Physician PCP - General 09/29/21 10/07/22 Unknown, Notinfile PCP - General 10/08/22 02/26/23 Lizz Ann MD PCP - General Family Medicine 02/27/23 documented as of this encounter
--- OUTSIDE RECORDS SUMMARY | 2024-11-28 15:23 | XMS_ITS | Encounter Summary ---
Author Organization [facility] Facility Care Team Providers Care Watch Engine Operator Name Role Phone No, Physician Primary Care Provider [phone] Unknown, Notinfile Primary Care Provider Unavail able Lizz Ann MD Primary Care Provi veronica Encounter Details Date Type Department Care Team (Latest Contact Info) Description 10/24/2015 Orders Only [facility] CLINCONV ProviderMarlene MD [address] [place] [address] Social History Tobacco Use Types Packs/Day Years Used Date Smoking Tobacco: Never Assessed Sex and Gender Information Value Date Recorded Sex Assigned at Not on file 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
--- OUTSIDE RECORDS SUMMARY | 2024-11-28 15:23 | XMS_ITS | Encounter Summary ---
Author Organization 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
--- OUTSIDE RECORDS SUMMARY | 2024-11-28 15:23 | XMS_ITS | Encounter Summary ---
Author Organization [facility] Facility Care Team Providers Care Retinal Surgeon Name Role Phone No, Physician Primary Care Provider [phone] Unknown, Notinfile Primary Care Provider Unavail able Lizz Ann MD Primary Care Provi veronica Encounter Details Date Type Department Care Team (Latest Contact Info) Description 09/21/2016 Orders Only [facility] CLINCONV ProviderMarlene MD [address] [place] [address] Social History Tobacco Use Types Packs/Day Years Used Date Smoking Tobacco: Never Assessed Sex and Gender Information Value Date Recorded Sex Assigned at Not on file 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
--- OUTSIDE RECORDS SUMMARY | 2024-11-28 15:23 | XMS_ITS | Encounter Summary ---
Author Organization [facility] Facility Care Team Providers Care Supervisor Public Health Nursing Name Role Phone No, Physician Primary Care Provider [phone] Unknown, Notinfile Primary Care Provider Unavail able Lizz Ann MD Primary Care Provi veronica Encounter Details Date Type Department Care Team (Latest Contact Info) Description 04/19/2017 Orders Only [facility] CLINCONV ProviderMarlene MD [address] [place] [address] Social History Tobacco Use Types Packs/Day Years Used Date Smoking Tobacco: Never Assessed Sex and Gender Information Value Date Recorded Sex Assigned at Not on file Legal Sex Male 11:22 AM CERTIFIED FRAUD EXAMINER Gender Identity Not on file Sexual Orientation Not on file documented as of this encounter Plan of Treatment Not on file documented as of this encounter Procedures Procedure Name Priority Date/Time Associated Diagnosis Comments SCAN - LABS 04/19/2017 12:00 AM CERTIFIED FRAUD EXAMINER documented in this encounter Results * SCAN - LABS (04/19/2017 12:00 AM CERTIFIED FRAUD EXAMINER) Narrative 04/19/2017 12:00 AM CERTIFIED FRAUD EXAMINER Ordered by an unspecified provider. us Historical Provider Final Res ult documented in this encounter Visit Diagnoses Not on filedocumented in this encounter Care Teams Supervisor Public Health Nursing Relationship Specialty Start Date End Date No, Physician PCP - General 09/29/21 10/07/22 Unknown, Notinfile PCP - General 10/08/22 02/26/23 Lizz Ann MD PCP - General Family Medicine 02/27/23 documented as of this encounter
--- OUTSIDE RECORDS SUMMARY | 2024-11-28 15:23 | XMS_ITS | Encounter Summary ---
Author Organization [facility] Facility Care Team Providers Care Parachute Rigger Name Role Phone No, Physician Primary Care Provider [phone] Unknown, Notinfile Primary Care Provider Unavail able Lizz Ann MD Primary Care Provi veronica Encounter Details Date Type Department Care Team (Latest Contact Info) Description 01/26/2017 Orders Only [facility] CLINCONV ProviderMarlene MD [address] [place] [address] Social History Tobacco Use Types Packs/Day Years Used Date Smoking Tobacco: Never Assessed Sex and Gender Information Value Date Recorded Sex Assigned at Not on file 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 us Historical Provider Final Res ult documented in this encounter Visit Diagnoses Not on filedocumented in this encounter Care Teams Parachute Rigger Relationship Specialty Start Date End Date No, Physician PCP - General 09/29/21 10/07/22 Unknown, Notinfile PCP - General 10/08/22 02/26/23 Lizz Ann MD PCP - General Family Medicine 02/27/23 documented as of this encounter
--- OUTSIDE RECORDS SUMMARY | 2024-11-28 15:23 | XMS_ITS | Encounter Summary ---
Author Organization [facility] Facility Care Team Providers Care Video Games Storywriter Name Role Phone No, Physician Primary Care Provider [phone] Unknown, Notinfile Primary Care Provider Unavail able Lizz Ann MD Primary Care Provi veronica Encounter Details Date Type Department Care Team (Latest Contact Info) Description 09/08/2016 Orders Only [facility] CLINCONV ProviderMarlene MD [address] [place] [address] Social History Tobacco Use Types Packs/Day Years Used Date Smoking Tobacco: Never Assessed Sex and Gender Information Value Date Recorded Sex Assigned at Not on file 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
--- OUTSIDE RECORDS SUMMARY | 2024-11-28 15:23 | XMS_ITS | Encounter Summary ---
Author Organization [facility] Facility Care Team Providers Care Bread Wrapper Name Role Phone No, Physician Primary Care Provider [phone] Unknown, Notinfile Primary Care Provider Unavail able Lizz Ann MD Primary Care Provi veronica Encounter Details Date Type Department Care Team (Latest Contact Info) Description 04/05/2017 Orders Only [facility] CLINCONV ProviderMarlene MD [address] [place] [address] Social History Tobacco Use Types Packs/Day Years Used Date Smoking Tobacco: Never Assessed Sex and Gender Information Value Date Recorded Sex Assigned at Not on file 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 us Historical Provider Final Res ult documented in this encounter Visit Diagnoses Not on filedocumented in this encounter Care Teams Bread Wrapper Relationship Specialty Start Date End Date No, Physician PCP - General 09/29/21 10/07/22 Unknown, Notinfile PCP - General 10/08/22 02/26/23 Lizz Ann MD PCP - General Family Medicine 02/27/23 documented as of this encounter
--- OUTSIDE RECORDS SUMMARY | 2024-11-28 15:23 | XMS_ITS | Encounter Summary ---
Author Organization [facility] Facility Care Team Providers Care Child Psychology Teacher Name Role Phone No, Physician Primary Care Provider [phone] Unknown, Notinfile Primary Care Provider Unavail able Lizz Ann MD Primary Care Provi veronica Encounter Details Date Type Department Care Team (Latest Contact Info) Description 08/04/2016 Orders Only [facility] CLINCONV ProviderMarlene MD [address] [place] [address] Social History Tobacco Use Types Packs/Day Years Used Date Smoking Tobacco: Never Assessed Sex and Gender Information Value Date Recorded Sex Assigned at Not on file 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
--- OUTSIDE RECORDS SUMMARY | 2024-11-28 15:23 | XMS_ITS | Encounter Summary ---
Author Organization [facility] Facility Care Team Providers Care Director Of Loss Prevention Name Role Phone No, Physician Primary Care Provider [phone] Unknown, Notinfile Primary Care Provider Unavail able Lizz Ann MD Primary Care Provi veronica Encounter Details Date Type Department Care Team (Latest Contact Info) Description 05/04/2017 Orders Only [facility] CLINCONV ProviderMarlene MD [address] [place] [address] Social History Tobacco Use Types Packs/Day Years Used Date Smoking Tobacco: Never Assessed Sex and Gender Information Value Date Recorded Sex Assigned at Not on file 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
--- OUTSIDE RECORDS SUMMARY | 2024-11-28 15:23 | XMS_ITS | Encounter Summary ---
Author Organization [facility] Facility Care Team Providers Care Bricklayer Apprentice Name Role Phone No, Physician Primary Care Provider [phone] Unknown, Notinfile Primary Care Provider Unavail able Lizz Ann MD Primary Care Provi veronica Encounter Details Date Type Department Care Team (Latest Contact Info) Description 03/24/2017 Orders Only [facility] CLINCONV ProviderMarlene MD [address] [place] [address] Social History Tobacco Use Types Packs/Day Years Used Date Smoking Tobacco: Never Assessed Sex and Gender Information Value Date Recorded Sex Assigned at Not on file Legal Sex Male 11:22 AM MATTRESS PACKER Gender Identity Not on file Sexual Orientation Not on file documented as of this encounter Plan of Treatment Not on file documented as of this encounter Procedures Procedure Name Priority Date/Time Associated Diagnosis Comments SCAN - LABS 03/24/2017 12:00 AM MATTRESS PACKER documented in this encounter Results * SCAN - LABS (03/24/2017 12:00 AM MATTRESS PACKER) Narrative 03/24/2017 12:00 AM MATTRESS PACKER Ordered by an unspecified provider. us Historical Provider Final Res ult documented in this encounter Visit Diagnoses Not on filedocumented in this encounter Care Teams Bricklayer Apprentice Relationship Specialty Start Date End Date No, Physician PCP - General 09/29/21 10/07/22 Unknown, Notinfile PCP - General 10/08/22 02/26/23 Lizz Ann MD PCP - General Family Medicine 02/27/23 documented as of this encounter
--- OUTSIDE RECORDS SUMMARY | 2024-11-28 15:23 | XMS_ITS | Encounter Summary ---
Author Organization [facility] Facility Care Team Providers Care Security Field Supervisor Name Role Phone No, Physician Primary Care Provider [phone] Unknown, Notinfile Primary Care Provider Unavail able Lizz Ann MD Primary Care Provi veronica Encounter Details Date Type Department Care Team (Latest Contact Info) Description 07/02/2016 Orders Only [facility] CLINCONV ProviderMarlene MD [address] [place] [address] Social History Tobacco Use Types Packs/Day Years Used Date Smoking Tobacco: Never Assessed Sex and Gender Information Value Date Recorded Sex Assigned at Not on file 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
--- OUTSIDE RECORDS SUMMARY | 2024-11-28 15:23 | XMS_ITS | Encounter Summary ---
Author Organization [facility] Facility Care Team Providers Care Director Appointment Name Role Phone No, Physician Primary Care Provider [phone] Unknown, Notinfile Primary Care Provider Unavail able Lizz Ann MD Primary Care Provi veronica Encounter Details Date Type Department Care Team (Latest Contact Info) Description 11/23/2016 Orders Only [facility] CLINCONV ProviderMarlene MD [address] [place] [address] Social History Tobacco Use Types Packs/Day Years Used Date Smoking Tobacco: Never Assessed Sex and Gender Information Value Date Recorded Sex Assigned at Not on file 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
--- OUTSIDE RECORDS SUMMARY | 2024-11-28 15:23 | XMS_ITS | Encounter Summary ---
Author Organization [facility] Facility Care Team Providers Care Product Accountant Name Role Phone No, Physician Primary Care Provider [phone] Unknown, Notinfile Primary Care Provider Unavail able Lizz Ann MD Primary Care Provi veronica Encounter Details Date Type Department Care Team (Latest Contact Info) Description 05/11/2017 Orders Only [facility] CLINCONV ProviderMarlene MD [address] [place] [address] Social History Tobacco Use Types Packs/Day Years Used Date Smoking Tobacco: Never Assessed Sex and Gender Information Value Date Recorded Sex Assigned at Not on file 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
--- OUTSIDE RECORDS SUMMARY | 2024-11-28 15:23 | XMS_ITS | Encounter Summary ---
Author Organization [facility] Facility Care Team Providers Care Legal Entity Controller Name Role Phone No, Physician Primary Care Provider [phone] Unknown, Notinfile Primary Care Provider Unavail able Lizz Ann MD Primary Care Provi veronica Encounter Details Date Type Department Care Team (Latest Contact Info) Description 09/28/2016 Orders Only [facility] CLINCONV ProviderMarlene MD [address] [place] [address] Social History Tobacco Use Types Packs/Day Years Used Date Smoking Tobacco: Never Assessed Sex and Gender Information Value Date Recorded Sex Assigned at Not on file 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
--- OUTSIDE RECORDS SUMMARY | 2024-11-28 15:23 | XMS_ITS | Encounter Summary ---
Author Organization [facility] Facility Care Team Providers Care Tar Heat Exchanger Cleaner Name Role Phone No, Physician Primary Care Provider [phone] Unknown, Notinfile Primary Care Provider Unavail able Lizz Ann MD Primary Care Provi veronica Encounter Details Date Type Department Care Team (Latest Contact Info) Description 06/07/2017 Orders Only [facility] CLINCONV ProviderMarlene MD [address] [place] [address] Social History Tobacco Use Types Packs/Day Years Used Date Smoking Tobacco: Never Assessed Sex and Gender Information Value Date Recorded Sex Assigned at Not on file 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
--- OUTSIDE RECORDS SUMMARY | 2024-11-28 15:23 | XMS_ITS | Encounter Summary ---
Author Organization [facility] Facility Care Team Providers Care Machine Printer Name Role Phone No, Physician Primary Care Provider Unknown, Notinfile Primary Care Provider Unavail able Lizz Ann MD Primary Care Provi veronica Encounter Details Date Type Department Care Team (Latest Contact Info) Description 03/29/2017 Orders Only [facility] CLINCONV ProviderMarlene MD [address] [place] [address] Social History Tobacco Use Types Packs/Day Years Used Date Smoking Tobacco: Never Assessed Sex and Gender Information Value Date Recorded Sex Assigned at Not on file Legal Sex Male 11:22 AM REGULATOR INSPECTOR Gender Identity Not on file Sexual Orientation Not on file documented as of this encounter Plan of Treatment Not on file documented as of this encounter Procedures Procedure Name Priority Date/Time Associated Diagnosis Comments SCAN - LABS 03/29/2017 12:00 AM REGULATOR INSPECTOR documented in this encounter Results * SCAN - LABS (03/29/2017 12:00 AM REGULATOR INSPECTOR) Narrative 03/29/2017 12:00 AM REGULATOR INSPECTOR Ordered by an unspecified provider. us Historical Provider Final Res ult documented in this encounter Visit Diagnoses Not on filedocumented in this encounter Care Teams Machine Printer Relationship Specialty Start Date End Date No, Physician PCP - General 09/29/21 10/07/22 Unknown, Notinfile PCP - General 10/08/22 02/26/23 Lizz Ann MD PCP - General Family Medicine 02/27/23 documented as of this encounter
--- OUTSIDE RECORDS SUMMARY | 2024-11-28 15:23 | XMS_ITS | Encounter Summary ---
Author Organization [facility] Facility Care Team Providers Care Refractive Surgeon Name Role Phone No, Physician Primary Care Provider [phone] Unknown, Notinfile Primary Care Provider Unavail able Lizz Ann MD Primary Care Provi veronica Encounter Details Date Type Department Care Team (Latest Contact Info) Description 05/04/2016 Orders Only [facility] CLINCONV ProviderMarlene MD [address] [place] [address] Social History Tobacco Use Types Packs/Day Years Used Date Smoking Tobacco: Never Assessed Sex and Gender Information Value Date Recorded Sex Assigned at Not on file 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
--- OUTSIDE RECORDS SUMMARY | 2024-11-28 15:23 | XMS_ITS | Encounter Summary ---
Author Organization [facility] Facility Care Team Providers Care Supervisor Backfilling Name Role Phone No, Physician Primary Care Provider [phone] Unknown, Notinfile Primary Care Provider Unavail able Lizz Ann MD Primary Care Provi veronica Encounter Details Date Type Department Care Team (Latest Contact Info) Description 07/15/2016 Orders Only [facility] CLINCONV ProviderMarlene MD [address] [place] [address] Social History Tobacco Use Types Packs/Day Years Used Date Smoking Tobacco: Never Assessed Sex and Gender Information Value Date Recorded Sex Assigned at Not on file 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
--- OUTSIDE RECORDS SUMMARY | 2024-11-28 15:23 | XMS_ITS | Encounter Summary ---
Author Organization [facility] Facility Care Team Providers Care Haul Truck Driver Name Role Phone No, Physician Primary Care Provider [phone] Unknown, Notinfile Primary Care Provider Unavail able Lizz Ann MD Primary Care Provi veronica Encounter Details Date Type Department Care Team (Latest Contact Info) Description 06/16/2017 Orders Only [facility] CLINCONV ProviderMarlene MD [address] [place] [address] Social History Tobacco Use Types Packs/Day Years Used Date Smoking Tobacco: Never Assessed Sex and Gender Information Value Date Recorded Sex Assigned at Not on file Legal Sex Male 11:22 AM 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
--- OUTSIDE RECORDS SUMMARY | 2024-11-28 15:23 | XMS_ITS | Encounter Summary ---
Author Organization [facility] Facility Care Team Providers Care Performance Test Consultant Name Role Phone No, Physician Primary Care Provider [phone] Unknown, Notinfile Primary Care Provider Unavail able Lizz Ann MD Primary Care Provi veronica Encounter Details Date Type Department Care Team (Latest Contact Info) Description 12/05/2015 Orders Only [facility] CLINCONV ProviderMarlene MD [address] [place] [address] Social History Tobacco Use Types Packs/Day Years Used Date Smoking Tobacco: Never Assessed Sex and Gender Information Value Date Recorded Sex Assigned at Not on file 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
--- OUTSIDE RECORDS SUMMARY | 2024-11-28 15:23 | XMS_ITS | Encounter Summary ---
Author Organization 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 us Historical Provider Final Res ult documented in this encounter Visit Diagnoses Not on filedocumented in this encounter Care Teams Licensed Life And Health Agent Relationship Specialty Start Date End Date No, Physician PCP - General 09/29/21 10/07/22 Unknown, Notinfile PCP - General 10/08/22 02/26/23 Lizz Ann MD PCP - General Family Medicine 02/27/23 documented as of this encounter
--- OUTSIDE RECORDS SUMMARY | 2024-11-28 15:23 | XMS_ITS | Encounter Summary ---
Author Organization [facility] Facility Care Team Providers Care Breakdown Mill Operator Name Role Phone No, Physician Primary Care Provider Unknown, Notinfile Primary Care Provider Unavail able Lizz Ann MD Primary Care Provi veronica Encounter Details Date Type Department Care Team (Latest Contact Info) Description 05/17/2017 Orders Only [facility] CLINCONV ProviderMarlene MD [address] [place] [address] Social History Tobacco Use Types Packs/Day Years Used Date Smoking Tobacco: Never Assessed Sex and Gender Information Value Date Recorded Sex Assigned at Not on file 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
--- OUTSIDE RECORDS SUMMARY | 2024-11-28 15:23 | XMS_ITS | Encounter Summary ---
Author Organization [facility] Facility Care Team Providers Care Batch Tester Name Role Phone No, Physician Primary Care Provider [phone] Unknown, Notinfile Primary Care Provider Unavail able Lizz Ann MD Primary Care Provi veronica Encounter Details Date Type Department Care Team (Latest Contact Info) Description 04/29/2017 Orders Only [facility] CLINCONV ProviderMarlene MD [address] [place] [address] Social History Tobacco Use Types Packs/Day Years Used Date Smoking Tobacco: Never Assessed Sex and Gender Information Value Date Recorded Sex Assigned at Not on file 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
--- OUTSIDE RECORDS SUMMARY | 2024-11-28 15:23 | XMS_ITS | Encounter Summary ---
Author Organization [facility] Facility Care Team Providers Care Cash Surrender Calculator Name Role Phone No, Physician Primary Care Provider [phone] Unknown, Notinfile Primary Care Provider Unavail able Lizz Ann MD Primary Care Provi veronica Encounter Details Date Type Department Care Team (Latest Contact Info) Description 04/16/2016 Orders Only [facility] CLINCONV ProviderMarlene MD [address] [place] [address] Social History Tobacco Use Types Packs/Day Years Used Date Smoking Tobacco: Never Assessed Sex and Gender Information Value Date Recorded Sex Assigned at Not on file Legal Sex Male 11:22 AM GENERATION ENGINEER Gender Identity Not on file Sexual Orientation Not on file documented as of this encounter Plan of Treatment Not on file documented as of this encounter Procedures Procedure Name Priority Date/Time Associated Diagnosis Comments SCAN - LABS 04/17/2016 12:00 AM GENERATION ENGINEER documented in this encounter Results * SCAN - LABS (04/17/2016 12:00 AM GENERATION ENGINEER) Narrative 04/17/2016 12:00 AM GENERATION ENGINEER Ordered by an unspecified provider. us Historical Provider Final Res ult documented in this encounter Visit Diagnoses Not on filedocumented in this encounter Care Teams Cash Surrender Calculator Relationship Specialty Start Date End Date No, Physician PCP - General 09/29/21 10/07/22 Unknown, Notinfile PCP - General 10/08/22 02/26/23 Lizz Ann MD PCP - General Family Medicine 02/27/23 documented as of this encounter
--- OUTSIDE RECORDS SUMMARY | 2024-11-28 15:23 | XMS_ITS | Encounter Summary ---
Author Organization [facility] Facility Care Team Providers Care Corn Husker Machine Operator Name Role Phone No, Physician Primary Care Provider [phone] Unknown, Notinfile Primary Care Provider Unavail able Lizz Ann MD Primary Care Provi veronica Encounter Details Date Type Department Care Team (Latest Contact Info) Description 05/06/2017 Orders Only [facility] CLINCONV ProviderMarlene MD [address] [place] [address] Social History Tobacco Use Types Packs/Day Years Used Date Smoking Tobacco: Never Assessed Sex and Gender Information Value Date Recorded Sex Assigned at Not on file Legal Sex Male 11:22 AM BOBCAT OPERATOR Gender Identity Not on file Sexual [...] on filedocumented in this encounter Care Teams Corn Husker Machine Operator Relationship Specialty Start Date End Date No, Physician PCP - General 09/29/21 10/07/22 Unknown, Notinfile PCP - General 10/08/22 02/26/23 Lizz Ann MD PCP - General Family Medicine 02/27/23 documented as of this encounter
--- OUTSIDE RECORDS SUMMARY | 2024-11-28 15:23 | XMS_ITS | Encounter Summary ---
Author Organization [facility] Facility Care Team Providers Care Model And Mold Maker Name Role Phone No, Physician Primary Care Provider [phone] Unknown, Notinfile Primary Care Provider Unavail able Lizz Ann MD Primary Care Provi veronica Encounter Details Date Type Department Care Team (Latest Contact Info) Description 08/31/2016 Orders Only [facility] CLINCONV ProviderMarlene MD [address] [place] [address] Social History Tobacco Use Types Packs/Day Years Used Date Smoking Tobacco: Never Assessed Sex and Gender Information Value Date Recorded Sex Assigned at Not on file Legal Sex Male 11:22 AM PATENT LEGAL ASSISTANT Gender Identity Not on file Sexual [...] on filedocumented in this encounter Care Teams Model And Mold Maker Relationship Specialty Start Date End Date No, Physician PCP - General 09/29/21 10/07/22 Unknown, Notinfile PCP - General 10/08/22 02/26/23 Lizz Ann MD PCP - General Family Medicine 02/27/23 documented as of this encounter
--- OUTSIDE RECORDS SUMMARY | 2024-11-28 15:23 | XMS_ITS | Encounter Summary ---
Author Organization [facility] Facility Care Team Providers Care Zoo Veterinarian Name Role Phone No, Physician Primary Care Provider [phone] Unknown, Notinfile Primary Care Provider Unavail able Lizz Ann MD Primary Care Provi veronica Encounter Details Date Type Department Care Team (Latest Contact Info) Description 10/03/2015 Orders Only [facility] CLINCONV ProviderMarlene MD [address] [place] [address] Social History Tobacco Use Types Packs/Day Years Used Date Smoking Tobacco: Never Assessed Sex and Gender Information Value Date Recorded Sex Assigned at Not on file Legal Sex Male 11:22 AM MAINFRAME CONSULTANT Gender Identity Not on file Sexual [...] on filedocumented in this encounter Care Teams Zoo Veterinarian Relationship Specialty Start Date End Date No, Physician PCP - General 09/29/21 10/07/22 Unknown, Notinfile PCP - General 10/08/22 02/26/23 Lizz Ann MD PCP - General Family Medicine 02/27/23 documented as of this encounter
--- OUTSIDE RECORDS SUMMARY | 2024-11-28 15:23 | XMS_ITS | Encounter Summary ---
Author Organization [facility] Facility Care Team Providers Care Grain Broker And Market Operator Name Role Phone No, Physician Primary Care Provider Unknown, Notinfile Primary Care Provider Unavail able Lizz Ann MD Primary Care Provi veronica Encounter Details Date Type Department Care Team (Latest Contact Info) Description 01/12/2017 Orders Only [facility] CLINCONV ProviderMarlene MD [address] [place] [address] Social History Tobacco Use Types Packs/Day Years Used Date Smoking Tobacco: Never Assessed Sex and Gender Information Value Date Recorded Sex Assigned at Not on file Legal Sex Male 11:22 AM CHIEF METEOROLOGIST Gender Identity Not on file Sexual Orientation Not on file documented as of this encounter Plan of Treatment Not on file documented as of this encounter Procedures Procedure Name Priority Date/Time Associated Diagnosis Comments SCAN - LABS 01/12/2017 12:00 AM CHIEF METEOROLOGIST documented in this encounter Results * SCAN - LABS (01/12/2017 12:00 AM CHIEF METEOROLOGIST) Narrative 01/12/2017 12:00 AM CHIEF METEOROLOGIST Ordered by an unspecified provider. us Historical Provider Final Res ult documented in this encounter Visit Diagnoses Not on filedocumented in this encounter Care Teams Grain Broker And Market Operator Relationship Specialty Start Date End Date No, Physician PCP - General 09/29/21 10/07/22 Unknown, Notinfile PCP - General 10/08/22 02/26/23 Lizz Ann MD PCP - General Family Medicine 02/27/23 documented as of this encounter
--- OUTSIDE RECORDS SUMMARY | 2024-11-28 15:23 | XMS_ITS | Encounter Summary ---
Author Organization [facility] Facility Care Team Providers Care Chief Nursing Executive Name Role Phone No, Physician Primary Care Provider [phone] Unknown, Notinfile Primary Care Provider Unavail able Lizz Ann MD Primary Care Provi veronica Encounter Details Date Type Department Care Team (Latest Contact Info) Description 11/01/2015 Orders Only [facility] CLINCONV ProviderMarlene MD [address] [place] [address] Social History Tobacco Use Types Packs/Day Years Used Date Smoking Tobacco: Never Assessed Sex and Gender Information Value Date Recorded Sex Assigned at Not on file Legal Sex Male 11:22 AM MANAGER PACKAGE Gender Identity Not on file Sexual Orientation [...] filedocumented in this encounter Care Teams Chief Nursing Executive Relationship Specialty Start Date End Date No, Physician PCP - General 09/29/21 10/07/22 Unknown, Notinfile PCP - General 10/08/22 02/26/23 Lizz Ann MD PCP - General Family Medicine 02/27/23 documented as of this encounter
--- OUTSIDE RECORDS SUMMARY | 2024-11-28 15:23 | XMS_ITS | Encounter Summary ---
Author Organization [facility] Facility Care Team Providers Care Forger Helper Name Role Phone No, Physician Primary Care Provider [phone] Unknown, Notinfile Primary Care Provider Unavail able Lizz Ann MD Primary Care Provi veronica Encounter Details Date Type Department Care Team (Latest Contact Info) Description 07/04/2015 Orders Only [facility] CLINCONV ProviderMarlene MD [address] [place] [address] Social History Tobacco Use Types Packs/Day Years Used Date Smoking Tobacco: Never Assessed Sex and Gender Information Value Date Recorded Sex Assigned at Not on file Legal Sex Male 11:22 AM BANK CLERK Gender Identity Not on file Sexual Orientation [...] on filedocumented in this encounter Care Teams Forger Helper Relationship Specialty Start Date End Date No, Physician PCP - General 09/29/21 10/07/22 Unknown, Notinfile PCP - General 10/08/22 02/26/23 Lizz Ann MD PCP - General Family Medicine 02/27/23 documented as of this encounter
--- OUTSIDE RECORDS SUMMARY | 2024-11-28 15:23 | XMS_ITS | Encounter Summary ---
Author Organization [facility] Facility Care Team Providers Care Emergency Manager Name Role Phone No, Physician Primary Care Provider [phone] Unknown, Notinfile Primary Care Provider Unavail able Lizz Ann MD Primary Care Provi veronica Encounter Details Date Type Department Care Team (Latest Contact Info) Description 03/08/2017 Orders Only [facility] CLINCONV ProviderMarlene MD [address] [place] [address] Social History Tobacco Use Types Packs/Day Years Used Date Smoking Tobacco: Never Assessed Sex and Gender Information Value Date Recorded Sex Assigned at Not on file Legal Sex Male 11:22 AM CERTIFIED CORPORATE TRAVEL EXECUTIVE Gender Identity Not on file Sexual Orientation Not on file documented as of this encounter Plan of Treatment Not on file documented as of this encounter Procedures Procedure Name Priority Date/Time Associated Diagnosis Comments SCAN - LABS 03/08/2017 12:00 AM CERTIFIED CORPORATE TRAVEL EXECUTIVE documented in this encounter Results * SCAN - LABS (03/08/2017 12:00 AM CERTIFIED CORPORATE TRAVEL EXECUTIVE) Narrative 03/08/2017 12:00 AM CERTIFIED CORPORATE TRAVEL EXECUTIVE Ordered by an unspecified provider. us Historical Provider Final Res ult documented in this encounter Visit Diagnoses Not on filedocumented in this encounter Care Teams Emergency Manager Relationship Specialty Start Date End Date No, Physician PCP - General 09/29/21 10/07/22 Unknown, Notinfile PCP - General 10/08/22 02/26/23 Lizz Ann MD PCP - General Family Medicine 02/27/23 documented as of this encounter
--- OUTSIDE RECORDS SUMMARY | 2024-11-28 15:23 | XMS_ITS | Encounter Summary ---
Author Organization [facility] Facility Care Team Providers Care Group Exercise Manager Name Role Phone No, Physician Primary Care Provider [phone] Unknown, Notinfile Primary Care Provider Unavail able Lizz Ann MD Primary Care Provi veronica Encounter Details Date Type Department Care Team (Latest Contact Info) Description 02/16/2017 Orders Only [facility] CLINCONV ProviderMarlene MD [address] [place] [address] Social History Tobacco Use Types Packs/Day Years Used Date Smoking Tobacco: Never Assessed Sex and Gender Information Value Date Recorded Sex Assigned at Not on file Legal Sex Male 11:22 AM CHIEF GROWTH OFFICER Gender Identity Not on file Sexual Orientation Not on file documented as of this encounter Plan of Treatment Not on file documented as of this encounter Procedures Procedure Name Priority Date/Time Associated Diagnosis Comments SCAN - LABS 02/16/2017 12:00 AM CHIEF GROWTH OFFICER documented in this encounter Results * SCAN - LABS (02/16/2017 12:00 AM CHIEF GROWTH OFFICER) Narrative 02/16/2017 12:00 AM CHIEF GROWTH OFFICER Ordered by an unspecified provider. us Historical Provider Final Res ult documented in this encounter Visit Diagnoses Not on filedocumented in this encounter Care Teams Group Exercise Manager Relationship Specialty Start Date End Date No, Physician PCP - General 09/29/21 10/07/22 Unknown, Notinfile PCP - General 10/08/22 02/26/23 Lizz Ann MD PCP - General Family Medicine 02/27/23 documented as of this encounter
--- OUTSIDE RECORDS SUMMARY | 2024-11-28 15:23 | XMS_ITS | Encounter Summary ---
Author Organization [facility] Facility Care Team Providers Care Analytics Manager Name Role Phone No, Physician Primary Care Provider [phone] Unknown, Notinfile Primary Care Provider Unavail able Lizz Ann MD Primary Care Provi veronica Encounter Details Date Type Department Care Team (Latest Contact Info) Description 11/29/2015 Orders Only [facility] CLINCONV ProviderMarlene MD [address] [place] [address] Social History Tobacco Use Types Packs/Day Years Used Date Smoking Tobacco: Never Assessed Sex and Gender Information Value Date Recorded Sex Assigned at Not on file Legal Sex Male 11:22 AM GRANT SPECIALIST Gender Identity Not on file Sexual [...] on filedocumented in this encounter Care Teams Analytics Manager Relationship Specialty Start Date End Date No, Physician PCP - General 09/29/21 10/07/22 Unknown, Notinfile PCP - General 10/08/22 02/26/23 Lizz Ann MD PCP - General Family Medicine 02/27/23 documented as of this encounter
--- OUTSIDE RECORDS SUMMARY | 2024-11-28 15:24 | XMS_ITS | Encounter Summary ---
Author Organization [facility] Facility Care Team Providers Care Long Chain Dyeing Machine Operator Name Role Phone No, Physician Primary Care Provider [phone] Unknown, Notinfile Primary Care Provider Unavail able Lizz Ann MD Primary Care Provi veronica Encounter Details Date Type Department Care Team (Latest Contact Info) Description 09/27/2015 Orders Only [facility] CLINCONV ProviderMarlene MD [address] [place] [address] Social History Tobacco Use Types Packs/Day Years Used Date Smoking Tobacco: Never Assessed Sex and Gender Information Value Date Recorded Sex Assigned at Not on file Legal Sex Male 11:22 AM DIRECTOR OF RESTAURANT OPERATIONS Gender Identity Not on file Sexual Orientation [...] on filedocumented in this encounter Care Teams Long Chain Dyeing Machine Operator Relationship Specialty Start Date End Date No, Physician PCP - General 09/29/21 10/07/22 Unknown, Notinfile PCP - General 10/08/22 02/26/23 Lizz Ann MD PCP - General Family Medicine 02/27/23 documented as of this encounter
== END 2024-11-28 13:28 | disposition home or self-care (01) ==
LOC: ANHLAB 13:29
PROVIDERS: Visit Provider Internal Medicine Hematology & Oncology
DX: C91.10 Chronic lymphocytic leukemia of B-cell type not having achieved remission (principal)
CPT/HCPCS: 36415; 83615